=== PATIENT | male | born 1975 | race Caucasian/White ===

== ENCOUNTER 2018-08-30 09:15 | Inpatient (IN) | payer OTHER ==
[2018-08-30] MEDS ORDERED: PANTOPRAZOLE SODIUM 40 MG VIAL IVP ONE (09:46)
[2018-08-30] MEDS ORDERED: NS 1,000 ML IV ONE (09:46)
[2018-08-30] MEDS ORDERED: ONDANSETRON 4 MG/2 ML VIAL IVP ONE (09:46)
--- NOTE | 2018-08-30 09:48 | EDPHY ---
H & P Stated Complaint: AMS Time Seen by Provider: 08/30/18 09:31 HPI/ROS: CHIEF COMPLAINT: Failure to thrive, confusion HISTORY OF PRESENT ILLNESS: The patient is brought in by paramedics with failure to thrive. The patient is a chronic alcoholic who lives independently. He typically is in contact with his family who lives out of state on a daily basis. They had not heard from him and 4 days which prompted them to call police. The patient was found in his apartment with vomit, diarrhea and evidence of GI bleeding noted. The patient himself is confused and unable to provide much history. He denies any acute complaints. He does report using alcohol but is unable to quantify how much. The patient denies any vomiting or diarrhea. The patient takes no regular medications however by report is supposed to be on Seroquel. REVIEW OF SYSTEMS: A comprehensive 10 point review of systems is otherwise negative aside from elements mentioned in the history of present illness. Source: Patient, Family, EMS - Personal History Current Tetanus/Diphtheria Vaccine: Unsure Current Tetanus Diphtheria and Acellular Pertussis (TDAP): Unsure - Medical/Surgical History Hx Asthma: No Hx Chronic Respiratory Disease: No Hx Diabetes: No Hx Cardiac Disease: Yes Hx Renal Disease: No Hx Cirrhosis: No Hx Alcoholism: Yes Hx HIV/AIDS: No Hx Splenectomy or Spleen Trauma: No Other PMH: HTN, ETOH abuse, - Social History Smoking Status: Never smoked - Physical Exam Exam: General Appearance: Alert, confused Eyes: Pupils equal and round no pallor or injection ENT, Mouth: Mucous membranes moist Respiratory: There are no retractions, lungs are clear to auscultation Cardiovascular: Tachycardic Gastrointestinal: Epigastric tenderness to palpation, melanotic stool noted Neurological: Alert and oriented x1, no gross motor deficits present Skin: Warm and dry, no rashes Musculoskeletal: Neck is supple nontender Extremities: symmetrical, full range of motion Constitutional: Initial Vital Signs Temperature (C) 36.6 C 08/30/18 09:22 Heart Rate 110 H 08/30/18 09:22 Respiratory Rate 20 08/30/18 09:22 Blood Pressure 180/114 H 08/30/18 09:22 O2 Sat (%) 98 08/30/18 09:22 O2 Delivery Mode Room Air Allergies/Adverse Reactions: No Known Allergies Allergy (Unverified 01/16/19 09:27) Home Medications: Medication Instructions Recorded Atomoxetine HCl [Strattera] 60 mg PO DAILY 08/30/18 Lisinopril/Hctz 20/12.5MG 1 ea PO DAILY 08/30/18 [Zestoretic/Prinzide 20/12.5MG (*)] Omeprazole 20 mg PO DAILY 08/30/18 QUEtiapine FUMARATE [Seroquel 50 150 mg PO HS 08/30/18 mg (*)] Medical Decision Making - Diagnostics Imaging Results: Imaging Impressions Head CT 08/30/18 09:48 Impression: No acute intracranial findings. If symptoms persist and clinical suspicion warrants, consider MRI. Findings discussed with Jackson Lazar 08/30/2018 at 10:32. ED Course/Re-evaluation: The patient presents to the ED with altered mental status, anemia, vomiting and failure to thrive. The patient is a longstanding alcoholic. He does have evidence of encephalopathy currently and is unable to provide much history. The patient was hemodynamically stable. He was noted to have a significant anemia with a hematocrit of 22. The patient was typed and screened for 2 units of blood. The patient has been started on IV Protonix. The patient was also noted to be hypokalemic. Serum magnesium level currently pending. The patient has been started on ICU level potassium and magnesium replacement therapy. Consultation was made with the hospitalist service. The patient will be admitted by Dr. Hernandez to the SDU. Consultation was made with Gastroenterology at 11:00 a.m. 11:00 a.m.: Blood pressure 147/102 HR 100. 11:30 a.m.: The patient was seen by Dr. Arrington for Gastroenterology in the ED who will plan for endoscopy later today. Differential Diagnosis: Differential diagnosis considered includes upper GI bleed, lower GI bleed, hepatic encephalopathy, cirrhosis, coagulopathy, intracranial hemorrhage, alcohol intoxication Critical Care Time: Critical care time exclusive of procedures and exclusive of the PA's time was 45 minutes, performed by myself, Jackson Lazar MD. Patient presents the ED with acute blood loss anemia, altered mental status in the setting of known alcoholism and severe metabolic derangements. The patient will require admission to the intensive care unit. The patient will be seen in consultation by Internal Medicine, critical care and Gastroenterology. - Data Points Laboratory Results: Laboratory Results 08/30/18 09:28 01/16/19 09:28 08/30/18 08/30/18 08/30/18 09:28 09:28 09:28 WBC RBC Hgb Hct MCV MCH MCHC RDW Plt Count MPV Neut % (Auto) Lymph % (Auto) Elliott % (Auto) Eos % (Auto) Baso % (Auto) Nucleat RBC Rel Count Absolute Neuts (auto) Absolute Lymphs (auto) Absolute Monos (auto) Absolute Eos (auto) Absolute Basos (auto) Absolute Nucleated RBC Immature Gran % Immature Gran # PT INR APTT Sodium 139 mEq/L mEq/L (135-145) Potassium 2.7 mEq/L L* mEq/L (3.5-5.2) Chloride 103 mEq/L mEq/L (97-110) Carbon Dioxide 25 mEq/l mEq/l (22-31) Anion Gap 11 mEq/L mEq/L (6-14) BUN 26 mg/dL H mg/dL (7-23) Creatinine 0.5 mg/dL L mg/dL (0.7-1.3) Estimated GFR > 60 Glucose 122 mg/dL H mg/dL (70-100) Calcium 8.2 mg/dL L mg/dL (8.5-10.4) Magnesium 1.3 mg/dL L mg/dL (1.6-2.3) Total Bilirubin 4.5 mg/dL H mg/dL (0.1-1.4) Conjugated Bilirubin 1.4 mg/dL H mg/dL (0.0-0.5) Unconjugated Bilirubin 3.1 mg/dL H mg/dL (0.0-1.1) AST 183 IU/L H IU/L (17-59) ALT 65 IU/L IU/L (21-72) Alkaline Phosphatase 85 IU/L IU/L (38-126) Total Protein 7.6 g/dL g/dL (6.3-8.2) Albumin 3.2 g/dL L g/dL (3.5-5.0) Lipase 275 IU/L IU/L (23-300) Ethyl Alcohol < 10 mg/dL mg/dL (0-10) Patient ABO/Rh B POSITIVE Antibody Screen NEGATIVE 08/30/18 08/30/18 09:28 09:28 WBC 10.82 10^3/uL H 10^3/uL (3.80-9.50) RBC 2.47 10^6/uL L 10^6/uL (4.40-6.38) Hgb 7.9 g/dL L g/dL (13.7-17.5) Hct 22.9 % L % (40.0-51.0) MCV 92.7 fL fL (81.5-99.8) MCH 32.0 pg pg (27.9-34.1) MCHC 34.5 g/dL g/dL (32.4-36.7) RDW 16.8 % H % (11.5-15.2) Plt Count 60 10^3/uL L 10^3/uL (150-400) MPV 11.0 fL fL (8.7-11.7) Neut % (Auto) 74.9 % H % (39.3-74.2) Lymph % (Auto) 13.6 % L % (15.0-45.0) Elliott % (Auto) 9.0 % % (4.5-13.0) Eos % (Auto) 0.1 % L % (0.6-7.6) Baso % (Auto) 0.2 % L % (0.3-1.7) Nucleat RBC Rel Count 3.3 % H % (0.0-0.2) Absolute Neuts (auto) 8.11 10^3/uL H 10^3/uL (1.70-6.50) Absolute Lymphs (auto) 1.47 10^3/uL 10^3/uL (1.00-3.00) Absolute Monos (auto) 0.97 10^3/uL H 10^3/uL (0.30-0.80) Absolute Eos (auto) 0.01 10^3/uL L 10^3/uL (0.03-0.40) Absolute Basos (auto) 0.02 10^3/uL 10^3/uL (0.02-0.10) Absolute Nucleated RBC 0.36 10^3/uL H 10^3/uL (0-0.01) Immature Gran % 2.2 % H % (0.0-1.1) Immature Gran # 0.24 10^3/uL H 10^3/uL (0.00-0.10) PT 22.4 SEC H SEC (12.0-15.0) INR 1.96 H (0.83-1.16) APTT 29.6 SEC SEC (23.0-38.0) Sodium Potassium Chloride Carbon Dioxide Anion Gap BUN Creatinine Estimated GFR Glucose Calcium Magnesium Total Bilirubin Conjugated Bilirubin Unconjugated Bilirubin AST ALT Alkaline Phosphatase Total Protein Albumin Lipase Ethyl Alcohol Patient ABO/Rh Antibody Screen Medications Given: Potassium Chloride (Potassium Cl 10 Meq (Premix)) 100 mls @ 100 mls/hr IV EDNOW ONE Stop: 08/30/18 11:49 Last Admin: 08/30/18 11:06 Dose: 100 mls Magnesium Sulfate (Magnesium Sulf 2 Gm (Premix)) 50 mls @ 50 mls/hr IV EDNOW ONE Stop: 08/30/18 12:10 Last Admin: 08/30/18 11:17 Dose: 50 mls Discontinued Medications Sodium Chloride (Ns) 1,000 mls @ 0 mls/hr IV EDNOW ONE; Wide Open PRN Reason: Protocol Stop: 08/30/18 09:47 Last Admin: 08/30/18 10:20 Dose: 1,000 mls Ondansetron HCl (Zofran) 4 mg IVP EDNOW ONE Stop: 08/30/18 09:47 Last Admin: 08/30/18 10:20 Dose: 4 mg Pantoprazole Sodium (Protonix) 80 mg IVP EDNOW ONE Stop: 08/30/18 09:47 Last Admin: 08/30/18 10:20 Dose: 80 mg Departure - Departure Disposition: [facility] Acute Clinical Impression: Upper GI bleed, Encephalopathy acute, Anemia, Hypokalemia, Alcohol dependence Condition: Critical
[2018-08-30 09:56] LABS: PLATELET COUNT 60 10^3/uL (150-400)
[2018-08-30 10:32] LABS: INR 1.96 (0.83-1.16); PROTIME(PATIENT) 22.4 SEC (12.0-15.0)
[2018-08-30] MEDS ORDERED: PROTOCOL POTASSIUM 1 DOSE MISC PRN (10:46)
[2018-08-30] MEDS ORDERED: PROTOCOL MAGNESIUM 1 DOSE IV PRN (10:46)
[2018-08-30] MEDS ORDERED: POTASSIUM Cl (KCl) 100 ML IV ONE ×4 (10:50→10:54)
[2018-08-30] MEDS ORDERED: ACETAMINOPHEN 325 MG TAB PO PRN (11:09)
[2018-08-30] MEDS ORDERED: MAGNESIUM SULF 2 GM/WATER 50 ML IV ONE (11:11)
--- NOTE | 2018-08-30 11:36 | PDGENHP ---
History and Physical - Chief Complaint confusion - History of Present Illness 43yo M alcoholic who was brought in by EMS after found confused and covered in bloody emesis. Per ED reports, he is typically in contact with family on a routine basis; they had not heard from him in 4 days so called for a welfare check where he was found. He was found surrounded by countless beer cans and had feces and bloody vomit around him. The patient is confused and unable to provide a clear history. He denies drinking any alcohol. Denies any recent bleeding or vomiting. Denies taking any medications or any recent hospitalizations. Attempted to contact next of kin, sister Keshia, but no answer. In the ED, he was noted to have a hematocrit of 22, platelets of 60, INR 1.9, and abnormal LFTs. Ethyl alcohol level was undetectable. He was type and screened and given IV protonix. His hemodynamics are stable. Dr Shepard GI was consulted and planning on endoscopy later today. History Information - Allergies/Home Medication List Allergies/Adverse Reactions: No Known Allergies Allergy (Unverified 08/30/18 09:27) Home Medications: Atomoxetine HCl [Strattera] 60 mg PO DAILY 08/30/18 [Last Taken Unknown] Lisinopril/Hctz 20/12.5MG [Zestoretic/Prinzide 20/12.5MG (*)] 1 ea PO DAILY [Last Taken Unknown] Omeprazole 20 mg PO DAILY 08/30/18 [Last Taken Unknown] QUEtiapine FUMARATE [Seroquel 50 mg (*)] 150 mg PO HS 08/30/18 [Last Taken Unknown] I have personally reviewed and updated: family history, medical history, social history, surgical history - Past Medical History Additional medical history: alcohol abuse (per [facility] notes, was drinking a 5th/day, inpatient rehab 11/2017 and sober on PCP check 12/2017), ? mood disorder , situational hypertension - Surgical History Reports: no pertinent surgical hx - Family History Additional family history: unknown - Social History Smoking Status: Never smoked Alcohol Use: Heavy Drug Use: Marijuana Additional social history: Moved to [place] in 2017. Has sister and brother-in- law in [place]. Review of Systems Review of Systems: ROS: 10pt was reviewed & negative except for what was stated in HPI & below Physical Exam Physical Exam: Temp Pulse Resp BP Pulse Ox 36.6 C 98 20 147/102 H 96 08/30/18 09:22 08/30/18 11:08 08/30/18 11:08 08/30/18 11:08 08/30/18 11:08 Constitutional: no apparent distress, chronically ill appearing, obese Eyes: anicteric sclera Ears, Nose, Mouth, Throat: dry mucous membranes Cardiovascular: tachycardia, No edema Respiratory: no respiratory distress, no rales or rhonchi, clear to auscultation Gastrointestinal: soft, non-tender abdomen, distension, No hepatosplenomegally, No guarding Genitourinary: no bladder fullness, no bladder tenderness Skin: other (scattered ecchymoses and abrasions) Musculoskeletal: full muscle strength Neurologic: CN II-XII Intact, other (alert but only oriented to self) Psychiatric: encephalopathic Lab Data & Imaging Review 08/30/18 09:28 08/30/18 09:28 WBC 10.82 10^3/uL (3.80-9.50) H 08/30/18 09:28 RBC 2.47 10^6/uL (4.40-6.38) L 08/30/18 09:28 Hgb 7.9 g/dL (13.7-17.5) L 08/30/18 09:28 Hct 22.9 % (40.0-51.0) L 08/30/18 09:28 MCV 92.7 fL (81.5-99.8) 08/30/18 09:28 MCH 32.0 pg (27.9-34.1) 08/30/18 09:28 MCHC 34.5 g/dL (32.4-36.7) 08/30/18 09:28 RDW 16.8 % (11.5-15.2) H 08/30/18 09:28 Plt Count 60 10^3/uL (150-400) L 08/30/18 09:28 MPV 11.0 fL (8.7-11.7) 08/30/18 09:28 Neut % (Auto) 74.9 % (39.3-74.2) H 08/30/18 09:28 Lymph % (Auto) 13.6 % (15.0-45.0) L 08/30/18 09:28 [place] % (Auto) 9.0 % (4.5-13.0) 08/30/18 09:28 Eos % (Auto) 0.1 % (0.6-7.6) L 08/30/18 09:28 Baso % (Auto) 0.2 % (0.3-1.7) L 08/30/18 09:28 Nucleat RBC Rel Count 3.3 % (0.0-0.2) H 08/30/18 09:28 Absolute Neuts (auto) 8.11 10^3/uL (1.70-6.50) H 08/30/18 09:28 Absolute Lymphs (auto) 1.47 10^3/uL (1.00-3.00) 08/30/18 09:28 Absolute Monos (auto) 0.97 10^3/uL (0.30-0.80) H 08/30/18 09:28 Absolute Eos (auto) 0.01 10^3/uL (0.03-0.40) L 08/30/18 09:28 Absolute Basos (auto) 0.02 10^3/uL (0.02-0.10) 08/30/18 09:28 Absolute Nucleated RBC 0.36 10^3/uL (0-0.01) H 08/30/18 09:28 Immature Gran % 2.2 % (0.0-1.1) H 08/30/18 09:28 Immature Gran # 0.24 10^3/uL (0.00-0.10) H 08/30/18 09:28 PT 22.4 SEC (12.0-15.0) H 08/30/18 09:28 INR 1.96 (0.83-1.16) H 08/30/18 09:28 APTT 29.6 SEC (23.0-38.0) 08/30/18 09:28 Sodium 139 mEq/L (135-145) 08/30/18 09:28 Potassium 2.7 mEq/L (3.5-5.2) L* 08/30/18 09:28 Chloride 103 mEq/L (97-110) 08/30/18 09:28 Carbon Dioxide 25 mEq/l (22-31) 08/30/18 09:28 Anion Gap 11 mEq/L (6-14) 08/30/18 09:28 BUN 26 mg/dL (7-23) H 08/30/18 09:28 Creatinine 0.5 mg/dL (0.7-1.3) L 08/30/18 09:28 Estimated GFR > 60 08/30/18:28 Glucose 122 mg/dL (70-100) H 08/30/18 09:28 Calcium 8.2 mg/dL (8.5-10.4) L 08/30/18 09:28 Magnesium 1.3 mg/dL (1.6-2.3) L 08/30/18 09:28 Total Bilirubin 4.5 mg/dL (0.1-1.4) H 08/30/18:28 Conjugated Bilirubin 1.4 mg/dL (0.0-0.5) H 08/30/18: Unconjugated Bilirubin 3.1 mg/dL (0.0-1.1) H 08/30/18 09:28 AST 183 IU/L (17-59) H 08/30/18 09:28 ALT 65 IU/L (21-72) 08/30/18 09:28 Alkaline Phosphatase 85 IU/L (38-126) 08/30/18 09: Ammonia 118.0 uMOL/L (9.0-30.0) H 08/30/18 11:00 Total Protein 7.6 g/dL (6.3-8.2) 08/30/18 09:28 Albumin 3.2 g/dL (3.5-5.0) L 08/30/18:28 Lipase 275 IU/L (23-300) 08/30/18 09:28 Ethyl Alcohol < 10 mg/dL (0-10) 08/30/18 09:28 Patient ABO/Rh B POSITIVE 08/30/18:28 Antibody Screen NEGATIVE 08/30/18 09:28 Assessment & Plan Assessment: 43yo M alcoholic who was brought in by EMS after found confused and covered in bloody emesis found to have anemia, abnormal LFTs. Plan: 1. Blood loss anemia: Suspect acute and likely related to UGIB. Tachy but BP ok. - Serial H/H - Type and screened, transfuse to keep hgb>7 - Dr Arrington of GI consulted, planning on EGD this afternoon - Pantoprazole 40mg IV BID 2. Acute hepatitis: Likely related to etoh abuse. Tylenol level negative. - Check acute hepatitis panel and liver ultrasound with doppler - DF score >50 however will hold on steroids with GIB - Trend LFTs daily 3. Acute metabolic encephalopathy: Related to liver failure, possible early etoh withdrawal. - Minimize centrally acting meds 4. 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 - FFP/vit K per GI. Monitor INR daily 5. Thrombocytopenia: Marrow suppression from etoh. Bleeding as above. - Monitor closely 6. Hypokalemia - Placed on K and Mg aggressive repletion protocol 7. EtOH abuse: Concern for early withdrawal with AMS, elevated BP. - Place on CIWA protocol, administer thiamine, substance abuse counseling when appropriate 8. ? mood disorder: Not on medications - Will try to contact family for additional info VTE ppx: SCDs Code: full Diet: NPO Dispo: Admit to step down unit as inpatient as will likely require >2 midnights given complexity and severity of medical problems.
--- NOTE | 2018-08-30 12:26 | GCON ---
REFERRING PHYSICIAN: Willam Hernandez MD CHIEF COMPLAINT: Gastrointestinal bleed. HISTORY OF PRESENT ILLNESS: This 43-year-old male was brought into the emergency department after be ing found down. I have been asked to see this patient in consultation by Dr. Hernandez. Patient has a history of known chronic alcohol abuse and lives independently. He is . His family lives in [place]. His family was concerned and requested a welfare check. Police went to the apartment a nd found him down in vomit and diarrhea. There was evidence of GI bleeding with blood around the pat ient. Patient was confused and unable to provide much history. He denied any abdominal pain or disc omfort. Reportedly, no prior history of GI bleeding. Patient does take Prilosec and Seroquel as an outpatient. Patient was found to have a low hematocrit of 22. Hemodynamically stable. Does have a low potassium 2.7. Asked to see patient for further evaluation. PAST MEDICAL HISTORY: Remarkable for significant alcohol use. PAST SURGICAL HISTORY: Negative. SOCIAL HISTORY: He is a nonsmoker. Alcohol as above. Patient lives alone without much family suppo rt. FAMILY HISTORY: Noncontributory as it as pertains to HPI. MEDICATIONS: Prior to admission, include Seroquel and omeprazole. ALLERGIES: He has no known drug allergies. REVIEW OF SYSTEMS: Unobtainable. PHYSICAL EXAMINATION: VITAL SIGNS: Pulse 110, respiratory rate 20, 118/114, 98% sat, 36.6. GENERA L: The patient is awake and alert, but confused and not oriented to time or place. HEENT: Normocep halic, atraumatic. EOMI. NECK: Supple. No cervical adenopathy. No thyromegaly. LUNGS: Clear. CARDIAC: Normal S1, S2 without murmur. ABDOMEN: Soft, benign, nontender. No hepatosplenomegaly. EXTREMITIES: Without clubbing, cyanosis, or edema. SKIN: Remarkable for some excoriations and kitty sions on his right knee. NEURO: Grossly nonfocal. PSYCH: Patient is confused, not oriented to marshall ce or time. LABORATORY/IMAGING: Noncontrast CT scan of the head was negative. CBC with hemoglobin 7.9, hematocrit 22.9, platelets of 60,000. Coags: PT of 22.4, INR of 1.96. Ser um chemistry: Potassium 2.7, chloride of 103, BUN 26, creatinine 0.5, glucose of 122. Total bilirub in of 4.5, conjugated bilirubin of 1.4 with unconjugated bilirubin 3.1, AST of 183, albumin 3.2 with ALT of 65, alkaline phosphatase of 85. Lipase 275. Alcohol level is less than 10. IMPRESSION: 43-year-old male with: 1. History of chronic alcoholism with evidence of probable upper gastrointestinal bleed. 2. Anemia. 3. Thrombocytopenia. 4. Abnormal liver function tests with elevated indirect bilirubin. RECOMMENDATIONS: 1. Replete potassium. 2. IV hydration. 3. Serial H and H. 4. Patient will be admitted to a monitored bed. 5. IV Protonix. 6. Recommend right upper quadrant ultrasound. 7. Recommend urgent endoscopy when metabolically stable. 8. We will follow with you. Thank you for allowing us to participate in the care of this patient. /[id number]/MODL
[2018-08-30] MEDS ORDERED: LORazepam 2 MG/ML INJ IVP ONE (12:33)
[2018-08-30 14:39] LABS: HEPATITIS A ANTIBODY IGM (BCH) NEGATIVE (NEGATIVE); HEPATITIS B CORE AB IGM NEGATIVE (NEGATIVE); HEPATITIS B SURFACE ANTIGEN NEGATIVE (NEGATIVE); HEPATITIS C ANTIBODY TOTAL NEGATIVE (NEGATIVE)
[2018-08-30] MEDS: POTASSIUM Cl (KCl) 100 ML IV SCH ×4 (15:56→20:28)
[2018-08-30] MEDS ORDERED: NS W/ 20 KCl/L 1,000 ML IV SCH (19:00)
[2018-08-30] MEDS: PANTOPRAZOLE SODIUM 40 MG VIAL IVP SCH (22:40)
[2018-08-31] MEDS: POTASSIUM Cl (KCl) 100 ML IV SCH ×9 (03:33→23:57)
[2018-08-31] MEDS ORDERED: FLUMAZENIL 0.5 MG/5 ML MDV IVP PRN (04:21)
[2018-08-31] MEDS: LORazepam 2 MG/ML INJ IVP PRN ×2 (04:32→12:44)
[2018-08-31] MEDS: THIAMINE HCL 100 MG TAB PO SCH (04:35)
[2018-08-31 06:19] LABS: PLATELET COUNT 50 10^3/uL (150-400)
[2018-08-31 06:27] LABS: INR 1.76 (0.83-1.16); PROTIME(PATIENT) 20.6 SEC (12.0-15.0)
--- NOTE | 2018-08-31 08:56 | HOSPPROG ---
Hospitalist Progress Note Assessment/Plan: 43yo M alcoholic who was brought in by EMS after found confused and covered in bloody emesis found to have anemia, abnormal LFTs. 1. Acute blood loss anemia: Due to variceal bleed. - s/p variceal banding this AM - Serial H/H - Type and screened, transfuse to keep hgb>7 - Pantoprazole 40mg IV BID 2. Acute alcoholic hepatitis: Tylenol level and acute hep panel negative. - DF score >50 however will hold on steroids with GIB - Trend LFTs daily 3. 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 MELD 19, estimating 6% 3 month mortality. 4. Acute metabolic encephalopathy: Related to liver failure - Start lactulose 5. Portal vein thrombosis: No evidence to anticoagulate, especially in setting of GIB. 6. 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 Monitor. 7. Thrombocytopenia: Marrow suppression from etoh. Bleeding as above. Monitor. 8. Hypokalemia - Placed on K and Mg aggressive repletion protocol 9. EtOH abuse: Likely will withdraw - CIWA protocol, administer thiamine, substance abuse counseling when appropriate VTE ppx: SCDs Code: full Diet: clears Dispo: Continue inpatient in step down unit. If stable, consider transfer to floor tomorrow. Discussed at length with [id number] Saad this morning. Sister, Keshia, proxy decision maker. Subjective: Sleepy. Answering questions with one word answers. Denies abdominal pain, emesis, blood in stools. Objective: Vital Signs Temp Pulse Resp BP Pulse Ox 36.9 C 83 17 156/79 H 96 08/31/18 07:39 08/31/18 07:39 08/31/18 07:39 08/31/18 07:39 08/31/18 07:39 Laboratory Results 08/31/18 05:57 08/31/18 08:05 08/30/18 08/31/18 09/01/18 05:59 05:59 05:59 Intake Total 3220 Output Total 900 Balance 2320 PT 20.6 SEC (12.0-15.0) H 08/31/18 05:57 INR 1.76 (0.83-1.16) H 08/31/18 05:57 - Physical Exam Constitutional: no apparent distress, obese Eyes: PERRL Ears, Nose, Mouth, Throat: no oral mucosal ulcers, other (dried blood around mouth) Cardiovascular: regular rate and rhythym, no murmur, rub, or gallop, No edema Respiratory: no respiratory distress, no rales or rhonchi, clear to auscultation Gastrointestinal: soft, non-tender abdomen, distension, No tenderness, No guarding Genitourinary: no bladder fullness, no bladder tenderness, no renal bruits Skin: other (scattered ecchymoses and abrasions) Musculoskeletal: generalized weakness Neurologic: other (alert, oriented to self only, no asterixis, no tongue fasciculations or hand tremor) Psychiatric: encephalopathic ICD10 Worksheet Patient Problems: Problems Problem Status Onset Alcohol dependence Acute Anemia Acute Encephalopathy acute Acute Hypokalemia Acute Upper GI bleed Acute
[2018-08-31] MEDS ORDERED: LR 1,000 ML IV ONE (09:30)
[2018-08-31] MEDS ORDERED: PROPOFOL 200 MG/20 ML VIAL ONE ×2 (09:54→10:06)
--- NOTE | 2018-08-31 09:54 | PDANEPAE ---
ANE Past Medical History - Pulmonary History Hx Oxygen in Use at Home: No Hx Sleep Apnea: No Sleep Apnea Screening Result - Last Documented: Positive - Endocrine History Hx Diabetes: No ANE Review of Systems Review of Systems: ANE Patient History - Allergies Allergies/Adverse Reactions: No Known Allergies Allergy (Unverified 08/30/18 09:27) - Home Medications Home Medications: Atomoxetine HCl [Strattera] 60 mg PO DAILY 08/30/18 [Last Taken Unknown] Lisinopril/Hctz 20/12.5MG [Zestoretic/Prinzide 20/12.5MG (*)] 1 ea PO DAILY [Last Taken Unknown] Omeprazole 20 mg PO DAILY 08/30/18 [Last Taken Unknown] QUEtiapine FUMARATE [Seroquel 50 mg (*)] 150 mg PO HS 08/30/18 [Last Taken Unknown] - NPO status NPO Since - Liquids (Date): 08/30/18 NPO Since - Liquids (Time): 09:00 NPO Since - Solids (Date): 08/30/18 NPO Since - Solids (Time): 09:00 - Smoking Hx Smoking Status: Never smoked - Alcohol Use Alcohol Use: Heavy ANE Labs/Vital Signs - Labs Result Diagrams: 08/31/18 05:57 08/31/18 08:05 - Vital Signs Blood Pressure: 156/79 Heart Rate: 83 Respiratory Rate: 17 O2 Sat (%): 96 Height: 182.88 cm Weight: 102 kg ANE Physical Exam - Airway Mallampati Score: Unable to assesss Mouth exam: small mouth opening, ceballos - Pulmonary Pulmonary: no respiratory distress, no rales or rhonchi, clear to auscultation - Cardiovascular Cardiovascular: regular rate and rhythym, no murmur, rub, or gallop - ASA Status ASA Status: IV ANE Anesthesia Plan Anesthesia Plan: GA with mask (patient encephalopatic, not following commands)
[2018-08-31] MEDS ORDERED: ALBUTEROL 3 ML DEYVIAL IH PRN (10:11)
[2018-08-31] MEDS ORDERED: NALOXONE HCL 0.4 MG/ML INJ IVP PRN (10:11)
--- NOTE | 2018-08-31 10:23 | POSTANESTH ---
Post Anesthetic Evaluation Cardiovascular Status: Normal, Stable, Similar to Pre-Op Cond Respiratory Status: Normal, Stable, Similar to Pre-op Cond. Level of Consciousness/Mental Status: Moderately Sleepy Pain Control: Adequate, Prn Tx Ordered Nausea/Vomiting Control: Adequate, Prn Tx Ordered Complications Possibly Related to Anesthesia: None Noted
--- NOTE | 2018-08-31 10:38 | GIREPORT ---
Formerly [facility], [facility] Surgical Services - Endoscopy Department Patient Name: Lucas Moura Procedure Date: 08/31/2018 9:46 AM Patient Type: Inpatient Attending MD/ ER Physician: Blayne Arrington MD Procedure: Upper GI endoscopy Indications: Acute post hemorrhagic anemia, Melena, Suspected upper gastrointestinal bleeding, Chronic alcoholism with suspected liver disease. Providers: Blayne Arringtno MD Medicines: Propofol per Anesthesia Complications: No immediate complications. Description of Procedure: After obtaining informed consent, the endoscope was passed under direct vision. Throughout the procedure, the patient's blood pressure, pulse, and oxygen saturations were monitored continuously. The Endoscope was intro duced through the mouth, and advanced to the second part of duodenum. The [facility] er GI endoscopy was accomplished without difficulty. The patient tolerated e procedure well. Moderate Sedation: Propofol per anesthesia. Findings: Two columns of non-bleeding grade II varices were found in the lower th ird of the esophagus, 40 cm from the incisors. Stigmata of recent bleeding were evident and red ella signs were present. Two bands were successfully pl aced with complete eradication, resulting in deflation of varices. There was no bleeding during the procedure. Moderate portal hypertensive gastropathy was found in the entire examin ed stomach. Biopsies were taken with a cold forceps for histology. The examined duodenum was normal. Estimated Blood Loss: Estimated blood loss: none. Post Op Diagnosis: - Recently bleeding grade II esophageal varices. Completely eradicated. Banded. - Portal hypertensive gastropathy. Biopsied. - Normal examined duodenum. Recommendation: - Clear liquid diet. - Await pathology results. - Serial H and H, monitor for signs and symtpms of bleeding - Repeat upper endoscopy in 4 weeks for retreatment. - Perform a RUQ ultrasound with doplers. - Thank you for allowing me to participate in the care of your patient. Attending Participation: I personally performed the entire procedure. Blayne Arrington MD Blayne Arrington MD 08/31/2018 10:37:40 AM This report has been signed electronicallyStfrances Arrington MD Number of Addenda: 0 Note Initiated On: 08/31/2018 9:46 AM [email or web address]
--- NOTE | 2018-08-31 10:54 | PDMN ---
Medical Necessity Medical necessity: Pt meets inpt criteria per MD order and MCG M-180, Gastrointestinal Bleeding, Upper. 43 y/o w/hx alcoholism presented to ER confused, w/bloody emesis, admitted w/ABLA likely r/t UGIB, H&H 7.9, 22.9 on admit and then down to 6.5, 18.9, acute hepatitis, cirrhosis on US, tachy, hypokalemia w/K 2.7, hypomagnesemia w/Mg 1.3, acute metabolic encephalopathy, ETOH abuse- on CIWA protocol, coagulopathy due to liver dysfunction, FFP/vit K/ urgent endoscopy when metabolically stable per GI. Est LOS>2MN for ongoing eval/ management of above.
[2018-08-31] MEDS: PANTOPRAZOLE SODIUM 40 MG VIAL IVP SCH ×2 (11:57→20:02)
--- NOTE | 2018-08-31 14:21 | GCON ---
CRITICAL CARE CONSULT DATE OF CONSULTATION: 08/31/2018 HISTORY OF PRESENT ILLNESS: This patient is a 43-year-old male with longstanding history of alcoholi sm who has failed rehab multiple times in the past who was found at home confused and surrounded by b eer cans, feces, and bloody emesis. The patient's family had difficulty reaching him for several day s who live out of state, called for a welfare check, and he was found in that state. He was brought to the emergency department, found to have hematocrit 22, platelets of 60. INR of 1.9, and abnormal LFTs. His blood alcohol level was undetectable. He was thought to be having a GI bleed and was move d to the intensive care unit for further monitoring. An EGD revealed esophageal varices, which were banded. He has also been getting Protonix. He has shown evidence of some alcohol withdrawal. He ovalles s gotten some Ativan and was unable to give much of a history to me at the time, so most of mine come s from his chart. REVIEW OF SYSTEMS: Otherwise negative. PAST MEDICAL HISTORY: Includes: 1. Alcohol abuse. 2. Possible mood disorder. 3. Hypertension. PAST SURGICAL HISTORY: None. FAMILY HISTORY: Unknown. SOCIAL HISTORY: He is a nonsmoker. Also uses marijuana, in addition to alcohol. CURRENT MEDICATIONS: Include lactulose, Ativan per protocol, Protonix, and thiamine. PHYSICAL EXAM: VITAL SIGNS: His T-max was normal. Blood pressure 141/82, heart rate 103, respirati ons 23, oxygen saturation 98% on 2 L. GENERAL: He was somnolent and not verbal. HEENT: Pupils equ ally round and reactive to light. Nonicteric and noninjected. Mucous membranes moist without erythe ma or exudate. RESPIRATORY: Breath sounds were clear to auscultation bilaterally without wheeze or rales. HEART: Regular rate and rhythm without murmurs, rubs, gallops. ABDOMEN: Soft, nontender, n ondistended without hepatosplenomegaly that I could detect. EXTREMITIES: No clubbing, cyanosis, or edema. NEUROLOGIC: Exam was nonfocal, save for the somnolence. There was no obvious asterixis, alt brando this is difficult to test in an obtunded patient. SKIN: Warm and dry without rash. OBJECTIVE DATA: Includes white count of 6.9, hematocrit 24, platelets of 50. INR 1.7. Basic metabo lic panel showed hypokalemia at 2.9, but was, otherwise, fairly unremarkable. His total bilirubin wa s 5.1 and risen from 4.5 on admission. AST was 133 down from 183 and ALT was normal at 54, with an a lkaline phosphatase of 73. His serum albumin was 2.5 and a hepatitis screen was negative for A, B, a nd C. The blood alcohol was negative. ASSESSMENT/PLAN: 1. Upper gastrointestinal bleed related to esophageal varices and cirrhosis as noted on imaging stud ies. This seems to be relatively stable at this time. The definitive therapy has been done and will be able to advance his diet eventually. His thrombocytopenia is no doubt a contributor, though is l ikely a baseline for him. We will have to investigate if there is any evidence of a previous platele t counts to be certain, but my suspicion is bone marrow suppression and probably a baseline. 2. Transaminitis is probably alcoholic hepatitis, though is on its way out. His INR is improving an d the LFTs are coming down, and steroids were not given, though I did not calculate his discriminant function. 3. Encephalopathy. He was quite encephalopathic yesterday. He is more somnolent today and I think this is after he was given Ativan per CIWA protocol. 4. Alcohol withdrawal. He is on protocol, but not a Precedex drip at the moment. Will have to watc h closely as this may escalate moving forward. /[id number]/MODL
[2018-08-31] MEDS: LACTULOSE 20 GM/30 ML UDCUP PO SCH ×2 (15:37→20:02)
[2018-08-31] MEDS ORDERED: POTASSIUM CL 20 MEQ TAB PO ONE (22:17)
--- NOTE | 2018-08-31 23:45 | CPEKG ---
Test Reason : OPEN Blood Pressure : / mmHG Vent. Rate : 085 BPM Atrial Rate : 085 BPM P-R Int : 157 ms QRS Dur : 114 ms QT Int : 411 ms P-R-T Axes : 028 -05 047 degrees QTc Int : 489 ms Sinus rhythm Borderline prolonged QT interval Confirmed by Shola Guillen ([id number]) on 08/31/2018 11:45:22 PM Referred By: Confirmed By:Shola Guillen
[2018-09-01 03:56] LABS: INR 1.81 (0.83-1.16); PROTIME(PATIENT) 21.1 SEC (12.0-15.0)
[2018-09-01 04:21] LABS: PLATELET COUNT 46 10^3/uL (150-400)
[2018-09-01] MEDS ORDERED: POTASSIUM CL 20 MEQ TAB PO ONE ×2 (05:30→21:05)
[2018-09-01] MEDS ORDERED: MAGNESIUM SULF 1 GM/DEXTROSE 100 ML IV ONE (08:41)
[2018-09-01] MEDS ORDERED: methylPREDNISolone SOD SUCC 40 MG/ML VIAL IVP SCH (09:00)
[2018-09-01] MEDS: LACTULOSE 20 GM/30 ML UDCUP PO SCH ×3 (09:38→20:03)
[2018-09-01] MEDS: THIAMINE HCL 100 MG TAB PO SCH (09:39)
[2018-09-01] MEDS: PANTOPRAZOLE SODIUM 40 MG VIAL IVP SCH (09:50)
[2018-09-01] MEDS ORDERED: PROTOCOL POTASSIUM 1 DOSE MISC PRN ×2 (11:55→21:03)
--- NOTE | 2018-09-01 13:46 | SOAPPROG ---
[facility] Progress Note Assessment/Plan: Assessment: 43 year old male presented to the hospital after found down at home with GI bleed. Patient significant drinker with evidence of cirrhosis on imaging/U/S. EGD with esophageal varices banded. Mental status improved and Alert and orientated x3. No signs of bleeding. Plan: 1. Advance diet to 2 gram low sodium diet. 2. Initiate on Nadolol 20 mg daily, may titrate up to 40 mg daily, goal of dosing to have resting HR 55 - 60. (for management of portal HTN) 3. EGD with repeat banding in 4 weeks 4. PO pantoprazole 40 mg daily 5. Will sign off, please call with further questions 09/01/18 13:48 Subjective: CC: GI bleed Patient is awake and alert, orientated x 3. No signs of bleeding. Objective: Vital Signs Temp Pulse Resp BP Pulse Ox 37.6 C 94 16 129/85 H 98 09/01/18 07:34 09/01/18 11:20 09/01/18 11:20 09/01/18 11:20 09/01/18 11:20 Laboratory Results 09/01/18 03:40 09/01/18 03:40 08/31/18 09/01/18 09/02/18 05:59 05:59 05:59 Intake Total 3220 5790 Output Total 900 1300 450 Balance 2320 4490 -450 PT 21.1 SEC (12.0-15.0) H 09/01/18 03:40 INR 1.81 (0.83-1.16) H 09/01/18 03:40 Generic Name Dose Route Start Last Admin Trade Name Kalq PRN Reason Stop Dose Admin Lactated Ringer's 1,000 mls @ 25 mls/hr 08/31/18 09:30 08/31/18 11:58 Lr IV 09/02/18 01:29 250 mls ONCALL ONE Administration Lactulose 20 gm 09/01/18 16:00 Cephulac PO 02/28/19 15:59 TID FRANSISCO Magnesium Sulfate 1 dose 08/30/18 10:46 Protocol Magnesium IV 02/26/19 10:45 AD PRN Pt on Electrolyte Protocol Protocol Methylprednisolone Sodium Succinate 32 mg 09/01/18 09:00 09/01/18 09:47 Solu-Medrol IVP 02/28/19 08:59 32 mg DAILY FRANSISCO Administration Pantoprazole Sodium 40 mg 09/01/18 21:00 Protonix PO 02/28/19 20:59 BID FRANSISCO Potassium Chloride 1 dose 09/01/18 11:55 Protocol Potassium MISC 02/28/19 11:54 AD PRN Pt on Electrolyte Protocol Protocol Thiamine HCl 100 mg 08/31/18 04:30 09/01/18 09:39 Vitamin B-1 PO 02/27/19 04:29 100 mg DAILY FRANSISCO Administration Discontinued Medications Generic Name Dose Route Start Last Admin Trade Name Freq PRN Reason Stop Dose Admin Acetaminophen 650 mg 08/30/18 11:09 Tylenol PO 02/26/19 11:08 Q4HRS PRN Pain, Mild/Fever, Can Take PO Albuterol 3 ml 08/31/18 10:11 Proventil Neb IH 08/31/18 11:12 Q10M PRN PACU, Wheezing Flumazenil 0.2 - 0.5 mg 08/31/18 04:21 Romazicon IVP 02/27/19 04:20 PRN PRN Resp Rate Below 10 Sodium Chloride 1,000 mls @ 0 mls/hr 08/30/18 09:46 08/30/18 10:20 Ns IV 08/30/18 09:47 1,000 mls EDNOW ONE Administration Protocol Wide Open Potassium Chloride 100 mls @ 100 mls/hr 08/30/18 10:50 08/30/18 11:06 Potassium Cl 10 Meq (Premix) IV 08/30/18 11:49 100 mls EDNOW ONE Administration Potassium Chloride 100 mls @ 100 mls/hr 08/30/18 10:53 08/30/18 12:19 Potassium Cl 10 Meq (Premix) IV 08/30/18 11:52 100 mls EDNOW ONE Administration Potassium Chloride 100 mls @ 100 mls/hr 08/30/18 10:53 08/30/18 13:19 Potassium Cl 10 Meq (Premix) IV 08/30/18 11:52 100 mls EDNOW ONE Administration Potassium Chloride 100 mls @ 100 mls/hr 08/30/18 10:54 08/30/18 16:02 Potassium Cl 10 Meq (Premix) IV 08/30/18 11:53 Not Given EDNOW ONE Magnesium Sulfate 50 mls @ 50 mls/hr 08/30/18 11:11 08/30/18 11:17 Magnesium Sulf 2 Gm (Premix) IV 08/30/18 12:10 50 mls EDNOW ONE Administration Potassium Chloride 100 mls @ 100 mls/hr 08/30/18 15:30 08/30/18 20:28 Potassium Cl 10 Meq (Premix) IV 08/30/18 19:29 100 mls Q1H FRANSISCO Administration Potassium Chloride/Sodium Chloride 1,000 mls @ 125 mls/hr 08/30/18 19:00 19:11 Ns W/ 20 Kcl/L IV 02/26/19 18:59 1,000 mls CONT FRANSISCO Administration Potassium Chloride 100 mls @ 100 mls/hr 08/31/18 03:30 08/31/18 06:47 Potassium Cl 10 Meq (Premix) IV 08/31/18 07:29 100 mls Q1H FRANSISCO Administration Potassium Chloride 100 mls @ 100 mls/hr 08/31/18 12:00 08/31/18 14:34 Potassium Cl 10 Meq (Premix) IV 08/31/18 14:59 100 mls Q1H FRANSISCO Administration Potassium Chloride 100 mls @ 100 mls/hr 08/31/18 22:30 08/31/18 23:57 Potassium Cl 10 Meq (Premix) IV 09/01/18 00:29 100 mls Q1H FRANSISCO Administration Magnesium Sulfate/Dextrose 100 mls @ 100 mls/hr 09/01/18 08:41 09/01/18 09:39 Magnesium Sulf 1 Gm (Premix) IV 09/01/18 09:40 100 mls ONCE ONE Administration Lactulose 20 gm 08/31/18 13:45 09/01/18 09:38 Cephulac PO 02/27/19 13:44 20 gm BID FRANSISCO Administration Lorazepam 1 mg 08/30/18 12:33 08/30/18 12:37 Ativan Injection IVP 08/30/18 12:34 1 mg EDNOW ONE Administration Lorazepam 0 mg 08/31/18 04:21 08/31/18 12:44 Ativan Injection IVP 02/27/19 04:20 2 mg Q1H PRN Administration Alcohol Withdrawal w/IV access Protocol Naloxone HCl 0.1 mg 08/31/18 10:11 Narcan IVP 08/31/18 11:11 Q2M PRN PACU Resp Rate <10/min Ondansetron HCl 4 mg 08/30/18 09:46 08/30/18 10:20 Zofran IVP 08/30/18 09:47 4 mg EDNOW ONE Administration Pantoprazole Sodium 80 mg 08/30/18 09:46 08/30/18 10:20 Protonix IVP 08/30/18 09:47 80 mg EDNOW ONE Administration Pantoprazole Sodium 40 mg 08/30/18 21:00 09/01/18 09:50 Protonix IVP 02/26/19 20:59 40 mg BID FRANSISCO Administration Potassium Chloride 1 dose 08/30/18 10:46 Protocol Potassium MISC 02/26/19 10:45 AD PRN Pt on Electrolyte Protocol Protocol Potassium Chloride 40 meq 08/31/18 22:17 08/31/18 22:27 Klor-Con PO 08/31/18 22:18 40 meq ONCE ONE Administration Potassium Chloride 40 meq 09/01/18 05:30 09/01/18 06:29 Klor-Con PO 09/01/18 05:31 40 meq ONCE ONE Administration Propofol Confirm 08/31/18 09:54 Diprivan Administered 08/31/18 09:55 Dose 200 mg .ROUTE .STK-MED ONE Propofol Confirm 08/31/18 10:06 Diprivan Administered 08/31/18 10:07 Dose 200 mg .ROUTE .STK-MED ONE Physical Exam - Physical Exam General Appearance: alert, no apparent distress Respiratory: lungs clear, normal breath sounds Cardiac/Chest: regular rate, rhythm Abdomen: normal bowel sounds, non-tender, soft Skin: normal color, warm/dry Neuro/Psych: alert, normal mood/affect, oriented x 3 ICD10 Worksheet Patient Problems: Problems Problem Status Onset Alcohol dependence Acute Anemia Acute Encephalopathy acute Acute Hypokalemia Acute Upper GI bleed Acute
--- NOTE | 2018-09-01 14:24 | HOSPPROG ---
Hospitalist Progress Note Assessment/Plan: 43yo M alcoholic who was brought in by EMS after found confused and covered in bloody emesis found to have anemia, abnormal LFTs. 1. Acute blood loss anemia: Due to variceal bleed s/p banding x2 08/31. H/H stable. - Daily hemoglobin, continue PPI PO BID, needs repeat EGD in 4 weeks 2. Acute alcoholic hepatitis: Tylenol level and acute hep panel negative. - DF score >50 on admit, 32 today - Initiated prednisolone 40mg qd, calculate Lille score on day 3 - Trend LFTs daily 3. 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 MELD 19, estimating 6% 3 month mortality. - Add nadolol 20mg qd per GI 4. Acute metabolic encephalopathy: Improving. Related to liver failure - Increase lactulose 5. Portal vein thrombosis: No evidence to anticoagulate, especially in setting of GIB. 6. 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 Monitor. 7. Thrombocytopenia: Marrow suppression from etoh. Bleeding as above. Monitor. 8. Hypokalemia - Placed on K and Mg aggressive repletion protocol 9. EtOH abuse: Do not think he is withdrawing. Only 4mg ativan last 24 hours - Discontinue CIWA VTE ppx: SCDs Code: full Diet: low sodium Dispo: Continue inpatient in step down unit. If stable, consider transfer to floor tomorrow. Subjective: Sitting up, alert this AM. More oriented. Not wanting to discuss drinking. I discussed his diagnoses of cirrhosis. Objective: Vital Signs Temp Pulse Resp BP Pulse Ox 37.6 C 94 16 129/85 H 98 09/01/18 07:34 09/01/18 11:20 09/01/18 11:20 09/01/18 11:20 09/01/18 11:20 Laboratory Results 09/01/18 03:40 09/01/18 03:40 08/31/18 09/01/18 09/02/18 05:59 05:59 05:59 Intake Total 3220 5790 Output Total 900 1300 450 Balance 2320 4490 -450 PT 21.1 SEC (12.0-15.0) H 09/01/18 03:40 INR 1.81 (0.83-1.16) H 09/01/18 03:40 - Physical Exam Constitutional: no apparent distress, appears nourished, not in pain Eyes: PERRL, anicteric sclera, EOMI Ears, Nose, Mouth, Throat: dry mucous membranes Cardiovascular: regular rate and rhythym, no murmur, rub, or gallop, No edema Respiratory: no respiratory distress, no rales or rhonchi, clear to auscultation Gastrointestinal: normoactive bowel sounds, soft, non-tender abdomen, no palpable masses Genitourinary: no bladder fullness, no bladder tenderness, no renal bruits Skin: other (scattered bruising and abrasions) Musculoskeletal: full muscle strength, no muscle tenderness, normal joint ROM Neurologic: other (alert, oriented x2, mild asterixis) Psychiatric: encephalopathic ICD10 Worksheet Patient Problems: Problems Problem Status Onset Alcohol dependence Acute Anemia Acute Encephalopathy acute Acute Hypokalemia Acute Upper GI bleed Acute
--- NOTE | 2018-09-01 15:25 | PDINTPN ---
Cut Off Machine Helper Progress Note Assessment/Plan: 43 M with long history of etoh admitted 08/30/18 after welfare check called for by out of state sister. He was found confused, covered in feces and bloody emesis with beer cans strewn about his home. His BP was stable, his LFTs were consistent with etoh hepatitis and his ammonia level was 111. He underwent EGD showing grade II varices that were banded without difficulty or evidence of rebleed. While a CIWA protocol was started, this was dc'd given his apparent hepatic encephalopathy. * UGIB- 2/2 varices. His US showed liver cirrhosis and splenomegaly as well as portal vein thrombosis. Hct is stable and there is no rebleeding * ETOH hepatitis- his discriminant function on admission was 39 and remains 32 today so prednisolone was started. His MELD score on admission was 20, and is now 18; both suggesting a possible 50% 30-day mortality. Hep A, B, and C have been ruled out here and elsewhere. I suspect his elevated INR and low albumin also reflect poor hepatic synthetic function. * Hepatic encephalopathy- he responded well to lactulose and is oriented x2 only. Continue lactulose but probably OK to hold off on rifaximin. No value in serial ammonia levels * ETOH dependence- he has failed rehab several times. Forced rehab is not indicated, but CM will work with him on plans for abstinence if he is interested. 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 * PVT- anticoagulation is not always indicated and I would argue against it at this time given UGIB. I do not think this is the cause of his LFT abnormalities given the predominant hepatocellular, rather than obstructive, pattern. Subjective: stable overnight with very little ativan. Declined detailed discussion of alcohol related issues. Objective: Vital Signs Temp Pulse Resp BP Pulse Ox 37.6 C 94 16 129/85 H 98 09/01/18 07:34 09/01/18 11:20 09/01/18 11:20 09/01/18 11:20 09/01/18 11:20 Laboratory Results 09/01/18 03:40 09/01/18 03:40 08/31/18 09/01/18 09/02/18 05:59 05:59 05:59 Intake Total 3220 5790 Output Total 900 1300 450 Balance 2320 4490 -450 PT 21.1 SEC (12.0-15.0) H 09/01/18 03:40 INR 1.81 (0.83-1.16) H 09/01/18 03:40 Physical Exam - Physical Exam General Appearance: WD/WN, alert, no apparent distress EENT: PERRL/EOMI Neck: supple Respiratory: lungs clear, normal breath sounds, No respiratory distress, No accessory muscle use Cardiac/Chest: regular rate, rhythm, No edema Abdomen: non-tender, soft, ascites (maybe?), No distended, No guarding, No rebound Skin: normal color, warm/dry, No cyanosis Neuro/Psych: alert, normal mood/affect, cognition abnormalities, No oriented x 3 , No abnormal diving supervisor II-XII ICD10 Worksheet Patient Problems: Problems Problem Status Onset Alcohol dependence Acute Anemia Acute Encephalopathy acute Acute Hypokalemia Acute Upper GI bleed Acute
[2018-09-01] MEDS: NADOLOL 20 MG TAB PO SCH (15:49)
--- NOTE | 2018-09-01 16:52 | ASMTCASEMG ---
Living Arrangements What is your living Answers: Alone arrangement? Who do you live with? Type Of Residence What kind of residence do Answers: House you live in? Type of Residence Facility Name Notes: Patient's left him 2 months ago Discharge Plan Comments Coordination Status Comments Notes: Patient is a 43yo male, brought by EMS after being found confused and covered in bloody emesis to [facility]. Patient is being admitted for blood loss anemia, acute hepatitis, encephalopathy, coagulopathy, thrombocytopenia, hypokalemia, ETOH abuse and mood disorder. PT/OT/NEW VEHICLE SALES CONSULTANT have been ordered. Cage to be completed when the patient is able to participate. Spoke with patient's sister about being proxy for him. She has confirmed serving as proxy with myself and Dr. Hernandez. Patient was going to give me a fax number for today so she can sign the paperwork. She has not returned my call as of 4:48 PM today. Placed paperwork in the front of the chart.Keshia did tell me she wants to know d/c date because she wants to be here to stay with the patient. The family is interested in moving the patient back to [place]. Keshia states his left him 2 months ago and he does not have a support system here. D/C plan TBD. CM will follow. Date Signed: 09/01/2018 04:51 PM Electronically Signed By:Anu Newell LCSW
[2018-09-01] MEDS: PANTOPRAZOLE SODIUM 40 MG TAB PO SCH (20:03)
[2018-09-01] MEDS ORDERED: traZODone 50 MG TAB PO PRN (23:11)
[2018-09-02] MEDS ORDERED: POTASSIUM CL 10 MEQ TAB PO ONE ×2 (01:59→08:45)
[2018-09-02 06:37] LABS: INR 1.75 (0.83-1.16); PROTIME(PATIENT) 20.5 SEC (12.0-15.0)
[2018-09-02] MEDS ORDERED: prednisoLONE 15 MG/5 ML ORAL UD LIQ PO SCH (09:00)
[2018-09-02] MEDS: NADOLOL 20 MG TAB PO SCH (09:41)
[2018-09-02] MEDS: LACTULOSE 20 GM/30 ML UDCUP PO SCH (09:41)
[2018-09-02] MEDS: THIAMINE HCL 100 MG TAB PO SCH (09:41)
[2018-09-02 09:42] VITALS: BP 143/84
[2018-09-02] MEDS: PANTOPRAZOLE SODIUM 40 MG TAB PO SCH (09:42)
--- NOTE | 2018-09-02 12:51 | PDDCSUM ---
Discharge Summary Discharge Summary: Date of Admission: 08/30/2018 Date of Discharge: 09/02/2018 Consultants: gastroenterology, caponizer Procedures/Studies: 1. Abdominal US 2. EGD Discharge Diagnoses: 1. Acute blood loss anemia 2. Recently bleeding grade II esophageal varices s/p banding 3. Acute alcoholic hepatitis 4. Alcoholic cirrhosis with portal hypertension 5. Acute metabolic encephalopathy, resolved 6. Portal vein thrombosis 7. Coagulopathy 8. Thrombocytopenia 9. Hypokalemia 10. Severe alcohol abuse disorder Brief Hospital Course: 43yo M alcoholic who was brought in by EMS after welfare check initiated by family. He was found confused and covered in bloody emesis and dark stools. Work up revealed severe anemia, thrombocytopenia, coagulopathy, and abnormal LFTs. An ultrasound of his liver showed cirrhosis and a portal vein thrombosis. He was obtunded on admission. He underwent an EGD after correction of his electrolyte disturbances which showed two recently bleeding esophageal varices which were banded with good result. He was transfused 2 units PRBC and his hemoglobin remained stable. His Maddrey Discriminant Function score was >50 based on admission labs, and he was started on steroids after his source of bleeding was controlled. He was started on lactulose and his mental status improved to normal. His LFTs were improving. He was initially on CIWA protocol but did not show any signs of withdrawal so this was discontinued. I discussed his new diagnosis of cirrhosis with him. I emphasized the extreme importance of no more alcohol consumption. He reports being motivated to quit drinking alcohol and has a plan to go into inpatient rehabilitation (which he's done several times before), as well as establish with a PCP and psychiatrist. I recommended that the patient stay an additional night in the hospital for ongoing monitoring; however, he refused. It is my opinion that he is medically stable and thus is not discharging against medical advice. He is of sound decision-making capacity at time of discharge. Of note, I did speak with his next-of-kin, sister Keshia and [id number] Saad Ferrer, when the patient was confused and unable to make decisions for himself. They report his left him prior to this recent binge. He has been in rehab several times but it has not worked. Keshia and Saad are planning on coming out to [place] and bringing the patient back to [place] (where they live) so he can be close by family support. Once the patient's encephalopathy resolved, he told me that he did not want me to further discuss any of his medical care with family, and I obliged to these wishes. Medications: Please refer to EMR for complete list. I wrote prescriptions for nadolol 20mg QD, pantoprazole 40mg QD, and lactulose 20gm TID and sent them to his pharmacy. I did not discharge him with steroids (prednisolone). Follow Up Plan: 1. Establish with PCP 2. He is planning on going into inpatient rehabilitation for his etoh abuse at [place] 3. He is planning on establishing with a psychiatrist and has a number to set up this appointment 4. Absolutely no additional etoh 5. Repeat EGD in 4 weeks for repeat variceal treatment Physical Exam: Vitals reviewed, normotensive. Alert and oriented, no asterixis, no hand tremor or tongue fasciculations. RRR without m/r/g, lungs clear, abdomen slightly distended but nontender. No leg edema. No rashes.
--- NOTE | 2018-09-02 13:05 | ASMTCAGE ---
CAGE Do you feel you ought to Answers: Yes cut down on your drinking or drug use? Do people annoy you by Answers: Yes criticizing your drinking or drug use? Do you feel guilty about Answers: Yes your drinking or drug use? 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 Additional Comments pt reports consuming 1 pint of vodka/day. Date Signed: 09/02/2018 01:04 PM Electronically Signed By:Gricelda Rahman RN
--- NOTE | 2018-09-02 13:10 | ASMTDCNOTE ---
Case Management Discharge Discharge Order Complete? Answers: Yes Patient to Obtain Answers: Independently Medications Transportation Arranged Answers: Taxi - Self Pay Family Notified Answers: Yes Discharge Comments Notes: 09/02/2018 Case Management Note Pt family involved from [place]. Brother in law Saad Dillon [phone] plans to arrive tomorrow. Pt to call taxi and self ay. Pt is in process of intake assessment with [facility] inpatient rehab. Provided Financial Counseling info. Case Management d/c poc: independent with follow up as directed. Date Signed: 09/02/2018 01:09 PM Electronically Signed By:Gricelda Rahman RN
--- NOTE | 2018-09-02 13:11 | ASDISCHSUM ---
Discharge Information Plan Status:Home with No Needs Medically Cleared to Leave:09/01/2018 Discharge Date:09/01/2018 CM D/C Disposition:Home, Routine, Self-Care ADT D/C Disposition:Home, Routine, Self-Care Projected Discharge Date:09/01/2018 Transportation at D/C:Self Discharge Delay Reason: Follow-Up Date:09/01/2018 Discharge Slot: Final Diagnosis: Placement Information Patient Contact Information Contact Name:VANNESSA Relationship:Sister Address:[address] City:[place] Alternate Phone: [facility]/Zip Code:[place] [address] Email: Financial Information Financial Class:HMO and PPO Plans Primary Plan Desc:[employer] ANGELIA ROBERTS Primary Plan Number:[id number] Secondary Plan Desc: Secondary Plan Number: Assessment Information LACE LACE Length of stay for Answers: 3 days current admission Acuity / Level of Answers: Yes Care: Did the patient have an inpatient admission? Comorbidities - select Answers: Other Notes: HTN all that apply # of Emergency department Answers: 1-2 visits in the last 6 months Social determinants Answers: History of substance abuse (ETOH, street drugs, prescription drugs, etc.) Mental health diagnosis (anxiety, depression, pers onality disorders, etc.) Score: 14 Date Signed: 09/02/2018 01:10 PM Electronically Signed By:Gricelda Rahamn RN [facility] Initial CM Assessment Living Arrangements What is your living Answers: Alone arrangement? Who do you live with? Type Of Residence What kind of residence do Answers: House you live in? Type of Residence Facility Name Notes: Patient's left him 2 months ago Discharge Plan Comments Coordination Status Comments Notes: Patient is a 43yo male, brought by EMS after being found confused and covered in bloody emesis to [facility]. Patient is being admitted for blood loss anemia, acute hepatitis, encephalopathy, coagulopathy, thrombocytopenia, hypokalemia, ETOH abuse and mood disorder. PT/OT/BIOLOGY SPECIALIST have been ordered. Cage to be completed when the patient is able to participate. Spoke with patient's sister about being proxy for him. She has confirmed serving as proxy with myself and Dr. Hernandez. Patient was going to give me a fax number for today so she can sign the paperwork. She has not returned my call as of 4:48 PM today. Placed paperwork in the front of the chart.Keshia did tell me she wants to know d/c date because she wants to be here to stay with the patient. The family is interested in moving the patient back to [place]. Keshia states his left him 2 months ago and he does not have a support system here. D/C plan TBD. CM will follow. Date Signed: 09/01/2018 04:51 PM Electronically Signed By:Anu Newell LCSW CAGE Questionnaire CAGE Do you feel you ought to Answers: Yes cut down on your drinking or drug use? Do people annoy you by Answers: Yes criticizing your drinking or drug use? Do you feel guilty about Answers: Yes your drinking or drug use? 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 Date Signed: 09/02/2018 01:04 PM Electronically Signed By:Gricelda Rahman RN Case Management Discharge Plan Note Case Management Discharge Discharge Order Complete? Answers: Yes Patient to Obtain Answers: Independently Medications Transportation Arranged Answers: Taxi - Self Pay Family Notified Answers: Yes Discharge Comments Notes: 09/02/2018 Case Management Note Pt family involved from [place]. Brother in law Saad Dillon [phone] plans to arrive tomorrow. Pt to call taxi and self ay. Pt is in process of intake assessment with [facility] rehab. Provided Financial Counseling info. Case Management d/c poc: independent with follow up as directed. Date Signed: 09/02/2018 01:09 PM Electronically Signed By:Gricelda Rahman RN Intervention Information
== END 2018-09-02 13:30 | disposition home or self-care (01) | DRG 432 ==
LOC: EDUNIT# → EEVIPCON 10:49 → F2N 15:15
PROVIDERS: ADMIT Internal Medicine; ATTEND Internal Medicine
PROC: 30233N1 Transfusion of Nonautologous Red Blood Cells into Peripheral Vein, Percutaneous Approach (ICD-10-PCS; principal; 2018-08-30)
PROC: 0DB68ZX Excision of Stomach, Via Natural or Artificial Opening Endoscopic, Diagnostic (ICD-10-PCS; 2018-08-31)
PROC: 06L38CZ Occlusion of Esophageal Vein with Extraluminal Device, Via Natural or Artificial Opening Endoscopic (ICD-10-PCS; 2018-08-31)
DX: K70.30 Alcoholic cirrhosis of liver without ascites (principal); I85.11 Secondary esophageal varices with bleeding; K70.40 Alcoholic hepatic failure without coma; K70.10 Alcoholic hepatitis without ascites; K76.6 Portal hypertension; D62 Acute posthemorrhagic anemia; D68.4 Acquired coagulation factor deficiency; F10.239 Alcohol dependence with withdrawal, unspecified; I10 Essential (primary) hypertension; E87.6 Hypokalemia; D69.6 Thrombocytopenia, unspecified
CPT/HCPCS: 80307; 92523-GN; 96365; 96366; 97116-GP; 97162-GP; 97166-GO; 97530-GP; G0472; G0480; J2060; J2405; J2704; J2920; J3475; J3480; J7510; P9016

== ENCOUNTER 2018-10-08 15:53 | Emergency (ER) | payer OTHER ==
--- NOTE | 2018-10-08 16:56 | EDPHY ---
H & P Time Seen by Provider: 10/08/18 16:23 HPI/ROS: HPI Alcohol abuse. Once detox. 43-year-old male by ambulance. He has a long history of alcohol abuse. He drinks at least a pt of vodka per day. He states that his last drink was at about 11:00 a.m. This morning. He is looking for a detox program to be admitted to. I explained to him that our hospital does not offer a detox program. Explain to him that I could prescribe him Valium or Librium and arrange for transport to the [facility]. He is not sure that he wants to do this. He is not suicidal. He does tell me though that he does not think he can't stop drinking alcohol on his own. Of note, the patient had some dried blood around his lips. He states that he has not had a seizure. He denies any vomiting. ROS: Constitutional: No fever, no chills. As above. Respiratory: No cough. No shortness of breath. Cardiac: No chest pain, no palpitations. Gastrointestinal: No abdominal pain, no vomiting, no diarrhea. Genitourinary: No hematuria. No dysuria or increased frequency with urination. Musculoskeletal: No back pain. No neck pain. No myalgias or arthralgias. Skin: No rashes. Neurological: No headache. No focal weakness or altered sensation. Past medical history: Hypertension. Alcohol abuse. Social history: He has a sister who he wants to talk to regarding possible transfer to the [facility]. He is currently here by himself. Denies smoking. As above. Physical Exam: General Appearance: Alert, he is not in distress. This patient is responding to questions appropriately and in full sentences. This patient appears well- hydrated and well-nourished. Eyes: Pupils equal and round no pallor or injection. No lid edema, erythema or injection. ENT, Mouth: Mucous membranes are moist. The pharyngeal tissues are unremarkable. No edema or swelling. No asymmetry suggestive of abscess. No erythema or exudates. He does have some dried blood around his lips as noted above. No tongue lacerations or abrasions. Posterior pharynx is normal. Respiratory: There are no retractions, lungs are clear to auscultation with good air movement bilaterally. Cardiovascular: Regular rate and rhythm. No murmur. Gastrointestinal: Abdomen is soft and nontender, no masses, bowel sounds normal. No focal tenderness at McBurney's point. No Rodriguez sign. Neurological: Motor sensory function is grossly intact. Cranial nerves are normal. Gait is normal. He does not have a significant resting tremor. Skin: Warm and dry, no rashes. Musculoskeletal: Neck is supple and nontender. Extremities are symmetrical. All joints range without pain or impingement. Psychiatric: No agitation. No depression. Database: EKG: Imaging: Procedures: Emergency department course: Triage vital signs reviewed. He is hypertensive. Vital signs are otherwise unremarkable. He is not significantly tremulous. He is not displaying significant signs of alcohol withdrawal at this time. I explained to him that we do not offer an alcohol detox program at this hospital. I did discuss [place]. I also explained to him that I was happy to arrange for transport to the [facility] with Librium to help with initial detox. He is not sure he wants to do this. 5:00 p.m., the patient is in agreement to be transfer to the [facility] with a Librium Dosepak. We also discussed this with his sister. He has been through this exact same scenario multiple times. The patient's remaining emergency department course under my care has been uneventful. He was transferred to the [facility] with a sober ride in stable condition. Differential Diagnosis: The differential diagnosis on this patient includes but is not limited to alcohol abuse, mild alcohol withdrawal. Delirium tremens, alcohol withdrawal seizure, alcoholic gastritis, gastrointestinal bleeding unlikely. This represents a partial list of diagnoses considered. These considerations are based on history, physical exam, past history, reassessment and diagnostic testing. Smoking Status: Never smoked Constitutional: Initial Vital Signs Temperature (C) 36.7 C 10/08/18 15:56 Heart Rate 95 10/08/18 15:56 Respiratory Rate 16 10/08/18 15:56 Blood Pressure 175/100 H 10/08/18 15:56 O2 Sat (%) 92 10/08/18 15:56 O2 Delivery Mode Room Air Allergies/Adverse Reactions: No Known Allergies Allergy (Verified 10/03/18 18:05) Home Medications: Medication Instructions Recorded Atomoxetine HCl [Strattera] 60 mg PO DAILY 08/30/18 Lactulose [Generlac] 20 gm PO TID #2000 ml 09/02/18 Nadolol [Nadolol 20 mg (*)] 20 mg PO DAILY #30 tab 09/02/18 Pantoprazole Sodium [Protonix 40mg 40 mg PO DAILY #30 tab 09/02/18 (*)] Departure - Departure Disposition: Home, Routine, Self-Care Clinical Impression: Alcohol abuse Condition: Good Instructions: Abuse of Alcohol (ED) Additional Instructions: Read and follow provided instructions. Follow-up with your primary care physician in 2-3 days for re-evaluation and to discuss alcohol detox programs. Librium medication will be administered by the [facility] staff to help with withdrawal symptoms. Return to the emergency department for worsening symptoms, alcohol withdrawal seizure, vomiting or other serious concerns. Referrals: [facility] Detox 24 Hours [Outside] - As per Instructions
[2018-10-08] MEDS ORDERED: CHLORDIAZEPOXIDE 25MG PREPK#6 BTL TAKEHOME ONE (16:57)
[2018-10-08 17:33] VITALS: BP 166/109
== END 2018-10-08 17:33 | disposition home or self-care (01) ==
LOC: EDUNIT#
DX: F10.129 Alcohol abuse with intoxication, unspecified (principal); I10 Essential (primary) hypertension

== ENCOUNTER 2018-10-12 16:04 | Inpatient (IN) | payer OTHER ==
--- NOTE | 2018-10-12 17:06 | EDPHY ---
H & P Time Seen by Provider: 10/12/18 17:04 HPI/ROS: CHIEF COMPLAINT: Vomiting blood HISTORY OF PRESENT ILLNESS: 41-year-old man has history of alcohol abuse and was admitted recently with a endoscopy in August 31 showing varices and hematocrit on the 02 of September at was 25 with a hemoglobin of 9. He was in detox and get out 3 days ago and has had alcohol since. At 10:30 a.m. Today vomited a large amount of bright red blood. Presents to the emergency department worried about that but has not had further episodes of vomiting, or abdominal pain. REVIEW OF SYSTEMS: Eye: no change in vision ENT: no sore throat Cardiac: no chest pain or syncope Pulmonary: no cough or SOB Abdomen: HPI Musculoskeletal: no back pain Skin: no rash Neuro: no headache Constitutional: no fever : no urinary symptoms A comprehensive 10 point review of systems is otherwise negative aside from elements mentioned in the history of present illness. PAST MEDICAL HISTORY: Gastroenterology EGD note dated 08/31/2018 notes grade 2 esophageal varices. Hypertension. Social history: Recent alcohol General Appearance: Alert and conversant, cooperative. Eyes: No scleral icterus. ENT, Mouth: Normal mucous membranes. Respiratory: Normal respiratory effort, breath sounds equal, lungs are clear to auscultation. Cardiovascular: Regular rate and rhythm. Gastrointestinal: Abdomen is soft and non tender. No rebound or guarding. Neurological: Alert, face symmetric, normal motor and sensory in extremities. Skin: Warm and dry, no rashes. Musculoskeletal: No peripheral edema. Psychiatric: Not agitated. Emergency Department course/MDM: My suspicion for recurrent upper GI bleed with documented recent esophageal varices. [place] to admit, start octreotide and PPI. 1719: I-STAT hemoglobin and hematocrit is 11 and 35. 1737: Platelet ordered for 23,000 with actively bleeding. Patient received 2 g IV magnesium and 10 meq IV potassium for hypokalemia. Smoking Status: Never smoked Constitutional: Initial Vital Signs Temperature (C) 37.2 C 10/12/18 16:57 Heart Rate 110 H 10/12/18 16:57 Respiratory Rate 16 10/12/18 16:57 Blood Pressure 158/103 H 10/12/18 16:57 O2 Sat (%) 92 10/12/18 16:57 O2 Delivery Mode Room Air Allergies/Adverse Reactions: No Known Allergies Allergy (Verified 10/12/18 16:57) Home Medications: Medication Instructions Recorded NK [No Known Home Meds] 10/12/18 Medical Decision Making - Diagnostics EKG Interpretation: 12-lead EKG interpreted by me; official reading is in computer system. My interpretation is sinus rhythm with borderline left axis Critical Care Time: Critical care time spent by me, Dr. Young, exclusively with the care of this patient was 40 minutes, exclusive of PA or LAW WRITER time and exclusive of separate procedures. The organ system at risk was metabolic and hematologic and I ordered IV platelets, IV potassium and magnesium, octreotide, PPI to stabilize the patient and prevent worsening of the patient's condition. - Data Points Laboratory Results: Laboratory Results 10/12/18 17:13 10/12/18 17:13 10/12/18 10/12/18 10/12/18 17:19 17:13 17:13 WBC RBC Hgb POC Hgb 11.9 gm/dL L gm/dL (13.7-17.5) Hct POC Hct 35 % L % (40-51) MCV MCH MCHC RDW Plt Count MPV Neut % (Auto) Lymph % (Auto) [place] % (Auto) Eos % (Auto) Baso % (Auto) Nucleat RBC Rel Count Absolute Neuts (auto) Absolute Lymphs (auto) Absolute Monos (auto) Absolute Eos (auto) Absolute Basos (auto) Absolute Nucleated RBC Immature Gran % Immature Gran # Platelet Estimate Smear Review By PT INR APTT POC Sodium 143 mEq/L mEq/L (135-145) Sodium 138 mEq/L mEq/L (135-145) POC Potassium 2.6 mEq/L L* mEq/L (3.3-5.0) Potassium 2.7 mEq/L L* mEq/L (3.5-5.2) POC Chloride 101 mEq/L mEq/L (97-110) Chloride 106 mEq/L mEq/L (97-110) Carbon Dioxide 22 mEq/l mEq/l (22-31) POC Total CO2 24 mEq/L mEq/L (22-31) Anion Gap 10 mEq/L mEq/L (6-14) POC BUN < 3 mg/dL L mg/dL (7-23) BUN 5 mg/dL L mg/dL (7-23) Creatinine 0.5 mg/dL L mg/dL (0.7-1.3) POC Creatinine 0.8 mg/dL mg/dL (0.7-1.3) Estimated GFR > 60 Glucose 93 mg/dL mg/dL (70-100) POC Glucose 89 mg/dL mg/dL (70-100) Calcium 8.2 mg/dL L mg/dL (8.5-10.4) Patient ABO/Rh B POSITIVE Antibody Screen NEGATIVE Platelet Orders Status READY 10/12/18 10/12/18 17:13 17:13 WBC 3.26 10^3/uL L 10^3/uL (3.80-9.50) RBC 3.76 10^6/uL L 10^6/uL (4.40-6.38) Hgb 11.3 g/dL L g/dL (13.7-17.5) POC Hgb Hct 32.9 % L % (40.0-51.0) POC Hct MCV 87.5 fL fL (81.5-99.8) MCH 30.1 pg pg (27.9-34.1) MCHC 34.3 g/dL g/dL (32.4-36.7) RDW 15.6 % H % (11.5-15.2) Plt Count 23 10^3/uL L* 10^3/uL (150-400) MPV TNP Neut % (Auto) 63.8 % % (39.3-74.2) Lymph % (Auto) 26.1 % % (15.0-45.0) [place] % (Auto) 8.9 % % (4.5-13.0) Eos % (Auto) 0.6 % % (0.6-7.6) Baso % (Auto) 0.6 % % (0.3-1.7) Nucleat RBC Rel Count 0.0 % % (0.0-0.2) Absolute Neuts (auto) 2.08 10^3/uL 10^3/uL (1.70-6.50) Absolute Lymphs (auto) 0.85 10^3/uL L 10^3/uL (1.00-3.00) Absolute Monos (auto) 0.29 10^3/uL L 10^3/uL (0.30-0.80) Absolute Eos (auto) 0.02 10^3/uL L 10^3/uL (0.03-0.40) Absolute Basos (auto) 0.02 10^3/uL 10^3/uL (0.02-0.10) Absolute Nucleated RBC 0.00 10^3/uL 10^3/uL (0-0.01) Immature Gran % 0.0 % % (0.0-1.1) Immature Gran # 0.00 10^3/uL 10^3/uL (0.00-0.10) Platelet Estimate DECREASED L (ADEQ) Smear Review By Pending PT 19.7 SEC H SEC (12.0-15.0) INR 1.66 H (0.83-1.16) APTT 31.8 SEC SEC (23.0-38.0) POC Sodium Sodium POC Potassium Potassium POC Chloride Chloride Carbon Dioxide POC Total CO2 Anion Gap POC BUN BUN Creatinine POC Creatinine Estimated GFR Glucose POC Glucose Calcium Patient ABO/Rh Antibody Screen Platelet Orders Status Medications Given: Discontinued Medications Sodium Chloride (Ns) 1,000 mls @ 0 mls/hr IV EDNOW ONE; Wide Open PRN Reason: Protocol Stop: 10/12/18 17:14 Last Admin: 10/12/18 17:35 Dose: 1,000 mls Octreotide Acetate 500 mcg/ (Sodium Chloride) 51 mls @ 5 mls/hr IV CONT FRANSISCO Stop: 04/10/19 17:29 Last Admin: 10/12/18 18:12 Dose: 51 mls Magnesium Sulfate (Magnesium Sulf 2 Gm (Premix)) 50 mls @ 50 mls/hr IV EDNOW ONE Stop: 10/12/18 18:21 Last Admin: 10/12/18 17:39 Dose: 50 mls Potassium Chloride (Potassium Cl 10 Meq (Premix)) 100 mls @ 100 mls/hr IV EDNOW ONE Stop: 10/12/18 18:21 Last Admin: 10/12/18 17:43 Dose: 100 mls Pantoprazole Sodium (Protonix) 80 mg IVP EDNOW ONE Stop: 10/12/18 17:14 Last Admin: 10/12/18 17:36 Dose: 80 mg Point of Care Test Results: Chemistry 10/12/18 17:19 POC Sodium 143 mEq/L mEq/L (135-145) POC Potassium 2.6 mEq/L L* mEq/L (3.3-5.0) POC Chloride 101 mEq/L mEq/L (97-110) POC Total CO2 24 mEq/L mEq/L (22-31) POC BUN < 3 mg/dL L mg/dL (7-23) POC Creatinine 0.8 mg/dL mg/dL (0.7-1.3) POC Glucose 89 mg/dL mg/dL (70-100) ISTAT H&H 10/12/18 17:19 POC Hgb 11.9 gm/dL L gm/dL (13.7-17.5) POC Hct 35 % L % (40-51) Departure - Departure Disposition: [facility] Inpatient Acute Clinical Impression: Upper GI bleed, Hypokalemia Condition: Serious
[2018-10-12] MEDS ORDERED: PANTOPRAZOLE SODIUM 40 MG VIAL IVP ONE (17:13)
[2018-10-12] MEDS ORDERED: NS 1,000 ML IV ONE (17:13)
[2018-10-12] MEDS ORDERED: MAGNESIUM SULF 2 GM/WATER 50 ML IV ONE (17:22)
[2018-10-12] MEDS ORDERED: POTASSIUM Cl (KCl) 100 ML IV ONE (17:22)
[2018-10-12] MEDS ORDERED: OCTREOTIDE ACETATE 500 MCG in NS 50 ML IV SCH ×2 (17:30→18:45)
[2018-10-12 17:34] LABS: PLATELET COUNT 23 10^3/uL (150-400)
[2018-10-12] MEDS ORDERED: PANTOPRAZOLE SODIUM 40 MG VIAL ONE (17:36)
[2018-10-12 17:41] LABS: INR 1.66 (0.83-1.16); PROTIME(PATIENT) 19.7 SEC (12.0-15.0)
--- NOTE | 2018-10-12 18:22 | CPEKG ---
Test Reason : OPEN Blood Pressure : / mmHG Vent. Rate : 099 BPM Atrial Rate : 100 BPM P-R Int : 150 ms QRS Dur : 102 ms QT Int : 380 ms P-R-T Axes : 041 -28 053 degrees QTc Int : 488 ms Sinus rhythm Borderline left axis deviation Borderline prolonged QT interval Confirmed by Archana Munoz ([id number]) on 10/12/2018 6:22:12 PM Referred By: ARCHANA MUNOZ Confirmed By:Archana Munoz
[2018-10-12] MEDS ORDERED: ACETAMINOPHEN 325 MG TAB PO PRN (18:43)
[2018-10-12] MEDS ORDERED: NS 1,000 ML IV SCH (18:45)
[2018-10-12] MEDS ORDERED: PROTOCOL MAGNESIUM 1 DOSE IV PRN (18:46)
[2018-10-12] MEDS ORDERED: PROTOCOL POTASSIUM 1 DOSE MISC PRN (18:46)
--- NOTE | 2018-10-12 18:59 | PDGENHP ---
History and Physical - Chief Complaint blood in vomit - History of Present Illness 43yo M with recently diagnosed alcohol cirrhosis with history of esophageal variceal bleed presents with blood in vomit. Was diagnosed with cirrhosis and complications of portal hypertension including esophageal varices during hospitalization 08/2018. He underwent EGD during that hospitalization which showed 2 columns of recently bleeding grade 2 esophageal varices which were banded. Portal hypertensive gastropathy was also seen. He was discharged on nadolol and a PPI. He reports that he had been abstinent from alcohol until just a few days ago when he drank a pint of liquor. He came to this ED requesting inpatient rehab placement and was sent to the [facility]. He was receiving librium there and was discharged yesterday. This morning, he had an episode of bright red blood in his vomit after eating breakfast. There has been no recurrence of this. He has noticed increasing abdominal distention and has diffuse abdominal pain. No fevers/chills. No diarrhea. He hasn't noticed any leg swelling. He hasn't been taking any medications. In the ED, he is mildly tachycardic with a HR in the 100s. His BP is actually slightly elevated. His hemoglobin is 11.3, up from 9 at discharge a month ago. He was given ceftriaxone, octreotide, and PPI and is being admitted for further care. Case discussed with ED physician Carlos Alberto Young. History Information - Allergies/Home Medication List Allergies/Adverse Reactions: No Known Allergies Allergy (Verified 10/12/18 16:57) Home Medications: NK [No Known Home Meds] 10/12/18 [Last Taken Unknown] I have personally reviewed and updated: family history, medical history, social history, surgical history - Past Medical History Additional medical history: alcohol abuse, alcohol cirrhosis with portal hypertension, esophageal variceal bleed s/p banding, portal vein thrombosis, cirrhosis-induced coagulopathy and thrombocytopenia - Surgical History Reports: no pertinent surgical hx - Family History Positive for: non-pertinent - Social History Smoking Status: Never smoked Alcohol Use: Heavy (prior heavy use, reports abstinence for ~1 month before relapsing recently) Drug Use: None Additional social history: Moved to [place] in 2017. Has sister and brother-in- law in [place]. Review of Systems Review of Systems: ROS: 10pt was reviewed & negative except for what was stated in HPI & below Physical Exam Physical Exam: Temp Pulse Resp BP Pulse Ox 36.9 C 99 18 141/94 H 96 10/12/18 18:45 10/12/18 18:45 10/12/18 18:45 10/12/18 18:45 10/12/18 18:45 Constitutional: no apparent distress, appears nourished, not in pain Eyes: PERRL, anicteric sclera, EOMI Ears, Nose, Mouth, Throat: moist mucous membranes, hearing normal, ears appear normal, no oral mucosal ulcers Cardiovascular: no murmur, rub, or gallop, tachycardia, No edema Respiratory: no respiratory distress, no rales or rhonchi, clear to auscultation Gastrointestinal: tenderness, distension, No guarding, No rebound Genitourinary: no bladder fullness, no bladder tenderness Skin: warm, normal color, no rashes or abrasions, no fluctuance, no induration, No mottled Musculoskeletal: full muscle strength, no muscle tenderness, normal joint ROM, no joint effusions Neurologic: AAOx3, other (no hand tremor or tongue fasciculations), No asterixes Psychiatric: interacting appropriately Lab Data & Imaging Review 10/12/18 17:13 10/12/18 17:13 WBC 3.26 10^3/uL (3.80-9.50) L 10/12/18 17:13 RBC 3.76 10^6/uL (4.40-6.38) L 10/12/18 17:13 Hgb 11.3 g/dL (13.7-17.5) L 10/12/18 17:13 POC Hgb 11.9 gm/dL (13.7-17.5) L 10/12/18 17:19 Hct 32.9 % (40.0-51.0) L 10/12/18 17:13 POC Hct 35 % (40-51) L 10/12/18 17:19 MCV 87.5 fL (81.5-99.8) 10/12/18 17:13 MCH 30.1 pg (27.9-34.1) 10/12/18 17:13 MCHC 34.3 g/dL (32.4-36.7) 10/12/18 17:13 RDW 15.6 % (11.5-15.2) H 10/12/18 17:13 Plt Count 23 10^3/uL (150-400) L* 10/12/18 17:13 MPV TNP 10/12/18 17:13 Neut % (Auto) 63.8 % (39.3-74.2) 10/12/18 17:13 Lymph % (Auto) 26.1 % (15.0-45.0) 10/12/18 17:13 Lane % (Auto) 8.9 % (4.5-13.0) 10/12/18 17:13 Eos % (Auto) 0.6 % (0.6-7.6) 10/12/18 17:13 Baso % (Auto) 0.6 % (0.3-1.7) 10/12/18 17:13 Nucleat RBC Rel Count 0.0 % (0.0-0.2) 10/12/18 17:13 Absolute Neuts (auto) 2.08 10^3/uL (1.70-6.50) 10/12/18 17:13 Absolute Lymphs (auto) 0.85 10^3/uL (1.00-3.00) L 10/12/18 17:13 Absolute Monos (auto) 0.29 10^3/uL (0.30-0.80) L 10/12/18 17:13 Absolute Eos (auto) 0.02 10^3/uL (0.03-0.40) L 10/12/18 17:13 Absolute Basos (auto) 0.02 10^3/uL (0.02-0.10) 10/12/18 17:13 Absolute Nucleated RBC 0.00 10^3/uL (0-0.01) 10/12/18 17:13 Immature Gran % 0.0 % (0.0-1.1) 10/12/18 17:13 Immature Gran # 0.00 10^3/uL (0.00-0.10) 10/12/18 17:13 Platelet Estimate DECREASED (ADEQ) L 10/12/18 17:13 PT 19.7 SEC (12.0-15.0) H 10/12/18 17:13 INR 1.66 (0.83-1.16) H 10/12/18 17:13 APTT 31.8 SEC (23.0-38.0) 10/12/18 17:13 POC Sodium 143 mEq/L (135-145) 10/12/18 17:19 Sodium 138 mEq/L (135-145) 10/12/18 17:13 POC Potassium 2.6 mEq/L (3.3-5.0) L* 10/12/18 17:19 Potassium 2.7 mEq/L (3.5-5.2) L* 10/12/18 17:13 POC Chloride 101 mEq/L (97-110) 10/12/18 17:19 Chloride 106 mEq/L (97-110) 10/12/18 17:13 Carbon Dioxide 22 mEq/l (22-31) 10/12/18 17:13 POC Total CO2 24 mEq/L (22-31) 10/12/18 17:19 Anion Gap 10 mEq/L (6-14) 10/12/18 17:13 POC BUN < 3 mg/dL (7-23) L 10/12/18 17:19 BUN 5 mg/dL (7-23) L 10/12/18 17:13 Creatinine 0.5 mg/dL (0.7-1.3) L 10/12/18 17:13 POC Creatinine 0.8 mg/dL (0.7-1.3) 10/12/18 17:19 Estimated GFR > 60 10/12/18 17:13 Glucose 93 mg/dL (70-100) 10/12/18 17:13 POC Glucose 89 mg/dL (70-100) 10/12/18 17:19 Calcium 8.2 mg/dL (8.5-10.4) L 10/12/18 17:13 Patient ABO/Rh B POSITIVE 10/12/18 17:13 Antibody Screen NEGATIVE 10/12/18 17:13 Platelet Orders Status READY 10/12/18 17:13 EKG additional interpertation: ECG: sinus tachy, borderline left axis, prolonged QTc, no ischemic changes Assessment & Plan Assessment: 43yo M with recently diagnosed alcohol cirrhosis with history of esophageal variceal bleed presents with blood in vomit. Plan: #Hematemesis with anemia: Concern for variceal bleed. He is mildly tachycardic but BP ok. H/H higher than prior. - Continue octreotide gtt, PPI IV BID, ceftriaxone - Serial H/H, NPO - Type and screened, transfuse to keep hgb>7 - Consulted GI for upper endoscopy #Acute on chronic thrombocytopenia: Suspect consumptive process from bleed - s/p transfusion 1 unit platelets, recheck in AM #Coagulopathy: Due to liver disease. INR 1.6 - Hold on vitamin K administration #Severe hypokalemia - Started on repletion and will place on K and Mg protocol, monitor on telemetry #Abdominal distention: Suspect ascites. - Check abdominal US, will likely require diuretics once bleed stabilized #EtOH cirrhosis: - Getting LFTs, calculate MELD once obtained for prognostic purposes - He is not currently encephalopathic but was previously on lactulose #EtOH abuse: Recent relapse after 1 month of sobriety. He does not appear to be in withdrawal at this time and will hold on CIWA. #Portal vein thrombosis: Noted on imaging from 08/2018. No indication for anticoagulation. VTE ppx: SCDs Code: full Dispo: Admit as inpatient to step down unit
[2018-10-12] MEDS ORDERED: PHYTONADIONE 10 MG in NS 50 ML IV ONE (21:00)
[2018-10-12] MEDS: PANTOPRAZOLE SODIUM 40 MG VIAL IVP SCH (22:21)
[2018-10-12] MEDS: THIAMINE HCL 100 MG TAB PO SCH (22:21)
[2018-10-12] MEDS: FOLIC ACID 1 MG TAB PO SCH (22:21)
[2018-10-12] MEDS: MULTIVITAMINS W-MINERALS 1 EACH TAB PO SCH (22:22)
[2018-10-12] MEDS ORDERED: POTASSIUM CL 10 MEQ TAB PO ONE (22:27)
[2018-10-12] MEDS: D5W 1/2 NS W/ 20 KCl/L 1,000 ML IV SCH (23:17)
[2018-10-13] MEDS ORDERED: SIMETHICONE 80 MG TAB CHEW PO PRN (00:21)
[2018-10-13 06:12] LABS: PLATELET COUNT 34 10^3/uL (150-400)
[2018-10-13] MEDS ORDERED: MAGNESIUM SULF 2 GM/WATER 50 ML IV ONE (08:34)
[2018-10-13] MEDS: POTASSIUM Cl (KCl) 100 ML IV SCH ×6 (08:49→23:42)
[2018-10-13] MEDS: FOLIC ACID 1 MG TAB PO SCH (08:55)
[2018-10-13] MEDS: PANTOPRAZOLE SODIUM 40 MG VIAL IVP SCH ×2 (08:55→23:08)
[2018-10-13] MEDS: MULTIVITAMINS W-MINERALS 1 EACH TAB PO SCH (08:56)
[2018-10-13] MEDS: THIAMINE HCL 100 MG TAB PO SCH (08:56)
[2018-10-13] MEDS ORDERED: PROPOFOL/EMULSION 500 MG/50 ML BOTTLE IV ONE (09:19)
[2018-10-13] MEDS ORDERED: MIDAZOLAM 2 MG/2 ML VIAL ONE (09:22)
--- NOTE | 2018-10-13 09:35 | PDANEPAE ---
ANE History of Present Illness 43 year old male for EGD for gi bleeding. History of alcohol abuse and gi bleed. ANE Past Medical History - Cardiovascular History Hx Hypertension: Yes Hx Arrhythmias: No Hx Chest Pain: No Hx Coronary Artery / Peripheral Vascular Disease: No Hx CHF / Valvular Disease: No Hx Palpitations: No - Pulmonary History Hx COPD: No Hx Asthma/Reactive Airway Disease: No Hx Recent Upper Respiratory Infection: No Hx Oxygen in Use at Home: No Hx Sleep Apnea: No - Neurologic History Hx Cerebrovascular Accident: No Hx Seizures: No Hx Dementia: No - Endocrine History Hx Diabetes: No - Renal History Hx Renal Disorders: No - Liver History Hx Hepatic Disorders: Yes Hepatic History Comment: cirossis - Neurological & Psychiatric Hx Hx Neurological and Psychiatric Disorders: No - Cancer History Hx Cancer: No - Congenital Disorder History Hx Congenital Disorders: No - GI History Hx Gastrointestinal Disorders: No - Other Health History Other Health History: bruises easily - Chronic Pain History Chronic Pain: No - Surgical History Prior Surgeries: varies banding ANE Review of Systems Review of systems is: negative Review of Systems: ANE Patient History - Allergies Allergies/Adverse Reactions: No Known Allergies Allergy (Verified 10/12/18 16:57) - Home Medications Home Medications: NK [No Known Home Meds] 10/12/18 [Last Taken Unknown] - Smoking Hx Smoking Status: Never smoked - Alcohol Use Alcohol Use: Heavy (prior heavy use, reports abstinence for ~1 month before relapsing recently) - Family Anes Hx Family Hx Anesthesia Complications: none ANE Labs/Vital Signs - Labs Result Diagrams: 10/13/18 05:35 10/13/18 05:35 - Vital Signs Blood Pressure: 144/96 Heart Rate: 85 Respiratory Rate: 20 O2 Sat (%): 97 Height: 182.88 cm Weight: 92.4 kg ANE Physical Exam - Airway Neck exam: FROM Mallampati Score: Class 2 - Pulmonary Pulmonary: no respiratory distress - Cardiovascular Cardiovascular: regular rate and rhythym - ASA Status ASA Status: III ANE Anesthesia Plan Anesthesia Plan: GA with mask
--- NOTE | 2018-10-13 09:42 | ASMTCASEMG ---
Living Arrangements What is your living Answers: Alone arrangement? Who do you live with? Type Of Residence What kind of residence do Answers: House you live in? Discharge Plan Comments Coordination Status Comments Notes: Patient is a 43yo male who was recently diagnosed with alcohol cirrhosis who is being admitted for hematemesis with anemia, acute on chronic thrombocytopenia, coagulopathy, severe hypokalemia, abdominal distention, etoh cirrhosis, etoh abuse, and portal vein thrombosis. No therapies ordered at this time. D/C plan TBD. CM will follow. Date Signed: 10/13/2018 09:41 AM Electronically Signed By:Anu Newell LCSW
[2018-10-13] MEDS ORDERED: oxyCODONE IR 5 MG TAB PO PRN (09:53)
[2018-10-13] MEDS ORDERED: NALOXONE HCL 0.4 MG/ML INJ IVP PRN (09:53)
[2018-10-13] MEDS ORDERED: ONDANSETRON 4 MG/2 ML VIAL IVP PRN (10:00)
--- NOTE | 2018-10-13 10:08 | POSTANESTH ---
Post Anesthetic Evaluation Cardiovascular Status: Normal, Stable Respiratory Status: Normal, Stable Level of Consciousness/Mental Status: Can Participate in Eval Pain Control: Adequate, Prn Tx Ordered Nausea/Vomiting Control: Adequate, Prn Tx Ordered Complications Possibly Related to Anesthesia: None Noted
[2018-10-13] MEDS ORDERED: ONDANSETRON 4 MG/2 ML VIAL ONE (10:11)
[2018-10-13] MEDS ORDERED: fentaNYL 100 MCG/2 ML INJ ONE (10:15)
[2018-10-13] MEDS: fentaNYL 100 MCG/2 ML INJ IVP PRN ×2 (10:16→10:23)
--- NOTE | 2018-10-13 10:27 | GIREPORT ---
[facility] - Endoscopy Department Patient Name: Lucas Moura Procedure Date: 10/13/2018 9:15 AM Patient Type: Inpatient Attending MD/ ER Physician: Leonard Polanco MD Procedure: Upper GI endoscopy Indications: Note dictated, consult appreciated. Hematemesis. Providers: Leonard Polanco MD, FACG Referring MD: [facility] Hospitalist service; Jason Larose MD; Blayne Arrington MD Medicines: Propofol per Anesthesia Complications: No immediate complications. Description of Procedure: After obtaining informed consent, the endoscope was passed under direct vision. Throughout the procedure, the patient's blood pressure, pulse, and oxygen saturations were monitored continuously. The Endoscope was intro duced through the mouth, and advanced to the second part of duodenum. Findings: A submucosal tear was found in the middle third of the esophagus,5 cm i n length, extending from 25 - 30 cm. No obvious perforation seen. Oozing of blood seen, but no very active bleeding. 2 + varices were again seen, near the GE junction (located at 40 cm). Nonbleeding. Mild portal hypertensive gastropathy was found in the entire examined stomach. The examined duodenum was normal. Estimated Blood Loss: Estimated blood loss: none. 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 Based on his nontoxic clinical status, suspec t it is contained and not freely perforated. Recommendation: - strict NPO - change 'biot to unasyn, to get mouth organisms - zofran prn - ativan prn - cont IV protonix - serial H/Hs, trf prn - IV thiamine - stop octreotide - for now, with him doing well clinically, will hold off on imaging (ch est CT, etc.). - recommend surgical consultation, in case his status changes, but hope fully will heal with time. I will d/w hospitalist. Thank you for allowing me to help in the management of this patient. Attending Participation: I personally performed the entire procedure. Sherri Valle MD Leonard Polanco MD 10/13/2018 10:27:26 AM This report has been signed electronicallyPeter MD Sherri Number of Addenda: 0 Note Initiated On: 10/13/2018 9:15 AM [email or web address]
--- NOTE | 2018-10-13 10:39 | GCON ---
[f rep st] CONSULTATION GASTROENTEROLOGY INPATIENT CONSULTATION DATE OF CONSULTATION: 10/13/2018 I was kindly requested to see Lucas by Dr. Willam Hernandez in consultation for a chief complaint of hematemesis. He is a 43-year-old white male with known alcoholic cirrhosis, who began drinking alcohol a few days ago. He presented to the emergency department, and was sent to rehab at [facility]. He received some Librium and then was discharged 2 days ago. Yesterday morning, he had an episode of hematemesis, bright red in nature, after eating breakfast. He was hospitalized last month for hematemesis, where he underwent an upper endoscopy by my partner, Dr. Blayne Arrington. Two columns of grade 2 esophageal varices were seen with stigmata of recent bleeding. Two bands were placed. These were done at 40 cm. He had some moderate portal hypertensive gastropathy. Biopsies for H pylori were negative. PAST MEDICAL HISTORY: 1. As above. 2. Alcohol abuse. 3. Alcoholic cirrhosis with portal hypertension. 4. Ultrasound on last admission showing portal vein thrombosis with retrograde filling. 5. Thrombocytopenia from his cirrhosis. 6. Otherwise, noncontributory. MEDICATIONS: He is not taking any outpatient medications. Inpatient medications include ceftriaxone, octreotide drip, Protonix 40 mg IV q.12 and IV fluids. ALLERGIES: No known drug allergies. SOCIAL HISTORY: As above. FAMILY HISTORY: Negative for similar hematemesis. REVIEW OF SYSTEMS: Positive pertinent review of systems as per my HPI. Otherwise, a complete review of systems is negative. PHYSICAL EXAM: CONSTITUTIONAL: Nontoxic. VITAL SIGNS: Stable. SKIN: Warm, dry. EYES: Pupils equal, round and reactive to light and accommodation. EARS , NOSE, MOUTH, AND THROAT: Oropharynx without masses, moist mucosa. CARDIOVASCULAR: Normal S2, normal PMI. RESPIRATORY: Lungs clear to auscultation and percussion anteriorly. GASTROINTESTINAL: Abdomen soft without any masses. NEUROLOGIC: Grossly nonfocal with cranial nerves grossly intact. PSYCHIATRIC: Orientation, insight appropriate. MUSCULOSKELETAL: Strength grossly normal throughout, normal station. LABORATORIES: Include initial hematocrit of 32.9%, then 29.8%, and now 28.7%. Platelet count initially of 23,000, and he received some platelets and it is presently 34,000. White count on admission 3.26 and now 1.82. Potassium 3.1. AST 95, alkaline phosphatase 152, prothrombin time 19.7 with an INR of 1.61. ASSESSMENT: Repeat hematemesis. This most likely represents a repeat variceal bleed. Bleeding from his portal hypertensive gastropathy is also possible, but less likely. He has restarted drinking alcohol, and was not taking his outpatient nadolol. PLAN: 1. Urgent upper endoscopy. Certainly, with his recurrent alcohol use, cirrhosis, portal hypertension, gastrointestinal bleeding, which may be variceal , need for propofol, etc., he is at increased risk for this procedure. However , suspected benefits outweigh the risks, suspect he would do well. 2. Vitamin K. 3. thiamine 4. Serial hematocrits. 5. IV fluids. 6. Further management depending on the above. Thank you for allowing me to help in the care of this patient. /[id number]/MODL MTDLisseth
--- NOTE | 2018-10-13 10:43 | PDMN ---
Medical Necessity Medical necessity: MCG: M180 GIB upper- A-2 days: ( fresh blood in emesis- severe liver disease- ) 43yoM recently Dg with alcohol cirrhosis with Hx of esophageal variceal bleeds presents with vomiting blood, tachycardia, anemia , hypokalemia, (2.7), abd. distention, thrombocytopenia , 1 unit plt. transfused. ECG shows borderline L axis, prolonged QTc, EGD: Boerhaave's syndrome strict NPO, anticipate > 2 MN ongoing med nec care
--- NOTE | 2018-10-13 11:17 | HOSPPROG ---
Hospitalist Progress Note Assessment/Plan: # Boerhaave syndrome - clinically stable, overall not consistent with mediastinitis - Dr Alegria will consult - will obtain CT of neck and chest - cont abx (change to unasyn), iv PPI # cirrhosis 2/2 etOH, c/b varices, thrombocytopenia, synthetic dysfunction # pancytopenia - d/t cirrhosis and etOH # etOH abuse - no evidence of withdrawal at this time Subjective: s/p EGD, Boerhaves noted; no CP Objective: Vital Signs Temp Pulse Resp BP Pulse Ox 37.5 C 85 20 144/96 H 97 10/13/18 10:31 10/13/18 09:35 10/13/18 09:35 10/13/18 09:35 10/13/18 09:35 Laboratory Results 10/13/18 05:35 10/13/18 05:35 10/12/18 10/13/18 10/14/18 05:59 05:59 05:59 Intake Total 2250 500 Output Total 0 Balance 2250 500 PT 19.7 SEC (12.0-15.0) H 10/12/18 17:13 INR 1.66 (0.83-1.16) H 10/12/18 17:13 chart reviewed discussed with Dr Polanco and Raji EGD reviewed - Physical Exam Constitutional: no apparent distress, appears nourished Cardiovascular: regular rate and rhythym, no murmur, rub, or gallop Respiratory: no respiratory distress, no rales or rhonchi, clear to auscultation Gastrointestinal: normoactive bowel sounds, soft, non-tender abdomen, no palpable masses ICD10 Worksheet Patient Problems: Problems Problem Status Onset Upper GI bleed Acute Encephalopathy acute Acute Anemia Acute Hypokalemia Acute Alcohol dependence Acute
[2018-10-13] MEDS ORDERED: IOPAMIDOL (ISOVUE-300) 100 ML BTL ONE (11:46)
[2018-10-13] MEDS: AMPICILLIN/SULBACTAM 3 GM in NS 100 ML IV SCH ×2 (12:24→17:43)
[2018-10-13] MEDS: LORazepam 2 MG/ML INJ IVP PRN ×2 (13:30→23:42)
--- NOTE | 2018-10-13 17:06 | GCON ---
[f rep st] CONSULTATION PULMONARY/CRITICAL CARE CONSULTATION DATE OF CONSULTATION: 10/13/2018 REFERRING PHYSICIAN: Edis Triana MD REASON FOR REFERRAL: Evaluation and management of Boerhaave syndrome and hematemesis. HISTORY: The patient is a 43-year-old male with a known history of alcoholism with alcoholic cirrhos is. He was at hospitalized a month ago with hematemesis, where he was found to have some esophageal varices that were banded by Dr. Arrington. He was abstinent, but then started drinking again and was s ent to the [facility] where he has received some Librium. Yesterday, he had an episode of hematemesis after eating breakfast and so was admitted to the hospital. He was hemodynamically stable and his hemoglo bin was stable, but he had low platelets, for which he was transfused. Today, he had upper endoscopy and was found to have a component of a 5 cm submucosal tear in the middle third of the esophagus wit h no obvious perforation. There is some oozing blood, but no significant active bleeding. The varic es were seen more distally. He was admitted to the ICU for close observation. He states that he has had epigastric pain, which has actually improved a bit since yesterday. He has had no further hemat emesis. PAST MEDICAL HISTORY: Alcohol abuse, alcoholic cirrhosis with portal hypertension and esophageal chasity ices, status post banding, thrombocytopenia. MEDICATIONS: At the time of admission: None. ALLERGIES: None. SOCIAL HISTORY: The patient has a history of alcohol abuse. He has never smoked. FAMILY HISTORY: Unremarkable. REVIEW OF SYSTEMS: A 10-point review of systems adds nothing to the history of present illness. PHYSICAL EXAMINATION: GENERAL: The patient is awake and alert and in no acute distress. VITAL SIGN S: Blood pressure is 129/74 with a heart rate of 80. He is afebrile. Oxygen saturations are 91% on room air. HEENT: Normocephalic and atraumatic. No icterus. NECK: No JVD. Trachea is midline. CHEST: Clear to auscultation. CARDIAC: Regular rate and rhythm without murmur. ABDOMEN: Soft, no ntender. Bowel sounds are present. EXTREMITIES: No clubbing, cyanosis, or edema. NEURO: The xavier ent is awake and alert. He has no gross motor or sensory deficits. LABORATORY/IMAGING: Hemoglobin is 9.8, down from 11.3 at admission. His platelet count is 34, up fr om 23 after transfusion. His white blood count is 1.8, down from 3.3. Chemistry group shows a potas sium of 3.1, up from 2.7, creatinine 0.5. AST is 122 with ALT of 51. LDH is elevated at 720. INR i s 1.7. Fibrinogen is 243. CT scan of the chest shows no focal infiltrates, mediastinal thickening, or air. Images were reviewe d by me. ASSESSMENT: 1. Boerhaave syndrome. The patient has a mid esophageal tear, but no signs or symptoms of mediastin itis. He is being empirically treated with Unasyn. 2. History of esophageal varices. He had an episode of hematemesis yesterday, but his hemoglobin ovalles s dropped a bit, but has been fairly stable with no further episodes of hematemesis and no active ble eding seen on the endoscopy. 3. Thrombocytopenia. This is chronic, likely related to the patient's cirrhosis. He does not have any active bleeding currently. RECOMMENDATIONS: 1. Continue Unasyn. 2. Continue n.p.o. status. 3. The patient has been seen in consultation by Dr. Goss, who recommends continued conservative man agement. 4. Follow CBC closely and transfuse as needed. /[id number]/MODL
[2018-10-14] MEDS: POTASSIUM Cl (KCl) 100 ML IV SCH ×4 (01:34→23:48)
[2018-10-14] MEDS: AMPICILLIN/SULBACTAM 3 GM in NS 100 ML IV SCH ×4 (01:34→17:08)
[2018-10-14 05:31] LABS: PLATELET COUNT 30 10^3/uL (150-400)
[2018-10-14] MEDS: THIAMINE HCL 100 MG in NS 100 ML IV SCH (07:19)
[2018-10-14] MEDS: PANTOPRAZOLE SODIUM 40 MG VIAL IVP SCH ×2 (07:20→20:14)
[2018-10-14] MEDS ORDERED: MAGNESIUM SULF 1 GM/DEXTROSE 100 ML IV ONE (07:28)
--- NOTE | 2018-10-14 09:45 | HOSPPROG ---
Hospitalist Progress Note Assessment/Plan: # Boerhaave syndrome - clinically stable, overall not consistent with mediastinitis - gen surg following, conservative management - cont unasyn, iv PPI # cirrhosis 2/2 etOH, c/b varices, thrombocytopenia, synthetic dysfunction - not c/w a variceal bleed # pancytopenia - d/t cirrhosis and etOH # etOH abuse - no evidence of withdrawal at this time Subjective: No chest pain; has mild twinges of pain in his right lower abdomen; hungry Objective: Vital Signs Temp Pulse Resp BP Pulse Ox 36.8 C 67 18 122/84 H 95 10/14/18 00:00 10/14/18 04:00 10/14/18 04:00 10/14/18 04:00 10/14/18 04:00 Laboratory Results 10/14/18 05:10 10/14/18 05:10 10/13/18 10/14/18 10/15/18 05:59 05:59 05:59 Intake Total 2250 3016 Output Total 0 Balance 2250 3016 PT 19.7 SEC (12.0-15.0) H 10/12/18 17:13 INR 1.66 (0.83-1.16) H 10/12/18 17:[address] Forrest muller Neck and chest CT reviewed - Physical Exam Constitutional: no apparent distress, appears nourished Cardiovascular: regular rate and rhythym, no murmur, rub, or gallop, systolic murmur Respiratory: no respiratory distress, no rales or rhonchi, clear to auscultation Gastrointestinal: soft, non-tender abdomen, no palpable masses ICD10 Worksheet Patient Problems: Problems Problem Status Onset Upper GI bleed Acute Encephalopathy acute Acute Anemia Acute Hypokalemia Acute Alcohol dependence Acute
--- NOTE | 2018-10-14 13:45 | SOAPPROG ---
SOAP Progress Note Assessment/Plan: Assessment: 43-YEAR-OLD MALE WITH A ESOPHAGEAL TEAR WHICH IS NOT APPEAR TO BE FULL-THICKNESS AFEBRILE/VITAL SIGNS STABLE/MINIMAL PAIN/GETTING HUNGRY CT SCAN SHOWED NO LEAK FROM HIS ESOPHAGUS HEENT NONICTERIC CHEST CLEAR COR REGULAR RHYTHM WITHOUT MURMURS ABDOMEN SOFT NONTENDER WITH POSITIVE BOWEL SOUNDS Plan: PLAN CONTINUE NPO/CLOSE OBSERVATION/CONSIDER FOLLOW-UP UPPER GI 10/14/18 13:43 Objective: Vital Signs Temp Pulse Resp BP Pulse Ox 36.3 C 58 L 16 125/87 H 98 10/14/18 12:55 10/14/18 12:55 10/14/18 12:55 10/14/18 12:55 10/14/18 12:55 Laboratory Results 10/14/18 05:10 10/14/18 05:10 10/13/18 10/14/18 10/15/18 05:59 05:59 05:59 Intake Total 2250 3016 Output Total 0 Balance 2250 3016 PT 19.7 SEC (12.0-15.0) H 10/12/18 17:13 INR 1.66 (0.83-1.16) H 10/12/18 17:13 ICD10 Worksheet Patient Problems: Problems Problem Status Onset Hypokalemia Acute Upper GI bleed Acute Alcohol dependence Acute Anemia Acute Encephalopathy acute Acute
--- NOTE | 2018-10-14 14:56 | SOAPPROG ---
SOAP Progress Note Assessment/Plan: Assessment: Plan: 10/14/18 14:53 A/P 1. Esophageal tear/contained perforation?- Clinically doing well. No c/o of upper abdominal pain, fevers etc. Esophagram tomorrow? Start diet dependent on results? GI will follow intermittently. Please call if needed. Subjective: cc: Follow up on esophageal tear/perforation. This is my first encounter with the patient. No complaints of upper abdominal pain, fever, or chills. Hungry. Objective: Vital Signs Temp Pulse Resp BP Pulse Ox 36.3 C 58 L 16 125/87 H 98 10/14/18 12:55 10/14/18 12:55 10/14/18 12:55 10/14/18 12:55 10/14/18 12:55 Laboratory Results 10/14/18 05:10 10/14/18 05:10 10/13/18 10/14/18 10/15/18 05:59 05:59 05:59 Intake Total 2250 3016 Output Total 0 Balance 2250 3016 PT 19.7 SEC (12.0-15.0) H 10/12/18 17:13 INR 1.66 (0.83-1.16) H 10/12/18 17:13 Physical Exam - Physical Exam General Appearance: alert, no apparent distress EENT: No scleral icterus (R), No scleral icterus (L) Respiratory: lungs clear, normal breath sounds, No decreased breath sounds, No crackles, No rales, No rhonchi Cardiac/Chest: regular rate, rhythm, No bradycardia, No tachycardia, No diastolic murmur, No systolic murmur Abdomen: normal bowel sounds, non-tender, soft, No distended, No guarding, No rebound Skin: normal color Extremities: normal inspection Neuro/Psych: normal mood/affect, oriented x 3, 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
[2018-10-14] MEDS: D5W 1/2 NS W/ 20 KCl/L 1,000 ML IV SCH (17:08)
[2018-10-14] MEDS: LORazepam 2 MG/ML INJ IVP PRN (20:14)
[2018-10-15] MEDS: AMPICILLIN/SULBACTAM 3 GM in NS 100 ML IV SCH ×4 (00:18→17:31)
[2018-10-15] MEDS: D5W 1/2 NS W/ 20 KCl/L 1,000 ML IV SCH (04:01)
[2018-10-15] MEDS: LORazepam 2 MG/ML INJ IVP PRN ×5 (04:09→21:48)
[2018-10-15] MEDS: THIAMINE HCL 100 MG in NS 100 ML IV SCH (09:03)
[2018-10-15] MEDS: PANTOPRAZOLE SODIUM 40 MG VIAL IVP SCH ×2 (09:04→21:48)
[2018-10-15] MEDS ORDERED: MAGNESIUM SULF 1 GM/DEXTROSE 100 ML IV ONE (10:06)
[2018-10-15] MEDS: POTASSIUM Cl (KCl) 100 ML IV SCH ×5 (13:00→23:30)
--- NOTE | 2018-10-15 13:30 | ASMTCMCOM ---
CM Note CM Note Notes: CM discussed patient case with RIANNA Gray. Patient continues NPO status & esophagram pending for tomorrow morning. CM to follow. Plan: TBD, likely home independent. Date Signed: 10/15/2018 01:29 PM Electronically Signed By:Francia Hall
--- NOTE | 2018-10-15 13:34 | HOSPPROG ---
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, c/b varices, thrombocytopenia, synthetic dysfunction - not c/w a variceal bleed # pancytopenia - d/t cirrhosis and etOH # etOH abuse - no evidence of withdrawal at this time Subjective: very frustrated with the perception that he is being lead along; i spoke with him in depth about this Objective: Vital Signs Temp Pulse Resp BP Pulse Ox 36.6 C 62 16 131/89 H 100 10/15/18 07:15 10/15/18 07:15 10/15/18 07:15 10/15/18 07:15 10/15/18 07:15 Laboratory Results 10/14/18 05:10 10/15/18 04:38 10/14/18 10/15/18 10/16/18 05:59 05:59 05:59 Intake Total 3016 420 1700 Output Total 0 Balance 3016 420 1700 PT 19.7 SEC (12.0-15.0) H 10/12/18 17:13 INR 1.66 (0.83-1.16) H 10/12/18 17:13 - Time Spent With Patient Time Spent with Patient: greater than 35 minutes Time Spent with Patient: Greater than 35 minutes spent on this patients care, greater than 50% of time spent counseling, educating, and coordinating care regarding the above mentioned plan. - Physical Exam Constitutional: uncomfortable ICD10 Worksheet Patient Problems: Problems Problem Status Onset Upper GI bleed Acute Encephalopathy acute Acute Anemia Acute Hypokalemia Acute Alcohol dependence Acute
--- NOTE | 2018-10-15 20:58 | SOAPPROG ---
SOAP Progress Note Assessment/Plan: Assessment: 43-YEAR-OLD MALE WITH A ESOPHAGEAL TEAR WHICH IS NOT APPEAR TO BE FULL-THICKNESS AFEBRILE/VITAL SIGNS STABLE/MINIMAL PAIN/GETTING HUNGRY CT SCAN SHOWED NO LEAK FROM HIS ESOPHAGUS HEENT NONICTERIC CHEST CLEAR COR REGULAR RHYTHM WITHOUT MURMURS ABDOMEN SOFT NONTENDER WITH POSITIVE BOWEL SOUNDS Plan: PLAN CONTINUE NPO/CLOSE OBSERVATION/CONSIDER FOLLOW-UP UPPER GI 10/14/18 13:43 10/15/18 20:57 COMFORTABLE/ AFEBRILE/ WANTS TO EAT ESOPHAGOGRAM IN AM Objective: Vital Signs Temp Pulse Resp BP Pulse Ox 36.6 C 54 L 16 132/91 H 99 10/15/18 16:00 10/15/18 16:00 10/15/18 16:00 10/15/18 16:00 10/15/18 16:00 Laboratory Results 10/14/18 05:10 10/15/18 18:10 10/14/18 10/15/18 10/16/18 05:59 05:59 05:59 Intake Total 3016 420 2900 Output Total 0 Balance 3016 420 2900 PT 19.7 SEC (12.0-15.0) H 10/12/18 17:13 INR 1.66 (0.83-1.16) H 10/12/18 17:13 ICD10 Worksheet Patient Problems: Problems Problem Status Onset Hypokalemia Acute Upper GI bleed Acute Alcohol dependence Acute Anemia Acute Encephalopathy acute Acute
[2018-10-15] MEDS: ZOLPIDEM TARTRATE 5 MG TAB PO PRN (23:34)
[2018-10-16] MEDS: AMPICILLIN/SULBACTAM 3 GM in NS 100 ML IV SCH ×5 (00:37→23:18)
[2018-10-16] MEDS: POTASSIUM Cl (KCl) 100 ML IV SCH ×3 (01:13→16:00)
[2018-10-16] MEDS: D5W 1/2 NS W/ 20 KCl/L 1,000 ML IV SCH ×2 (01:14→17:45)
[2018-10-16] MEDS: LORazepam 2 MG/ML INJ IVP PRN ×3 (05:32→16:30)
[2018-10-16] MEDS ORDERED: MAGNESIUM SULF 1 GM/DEXTROSE 100 ML IV ONE (07:33)
[2018-10-16] MEDS: PANTOPRAZOLE SODIUM 40 MG VIAL IVP SCH ×2 (08:01→21:16)
--- NOTE | 2018-10-16 08:52 | SOAPPROG ---
SOAP Progress Note Assessment/Plan: Assessment: 43 y/o M with hx of etoh abuse, admitted for esophageal tear H&H stable. VSS Plan for esophagram this am. Hopefully advance diet to clears afterward. S: Denies pain. Has appetite. O:Alert Afebrile RRR No increased WOB Abdomen soft, nontender. 10/16/18 08:49 Objective: Vital Signs Temp Pulse Resp BP Pulse Ox 36.3 C 56 L 16 120/84 H 97 10/16/18 08:10 10/16/18 08:10 10/16/18 08:10 10/16/18 08:10 10/16/18 08:10 Laboratory Results 10/14/18 05:10 10/16/18 05:23 10/15/18 10/16/18 10/17/18 05:59 05:59 05:59 Intake Total 420 2900 Balance 420 2900 PT 19.7 SEC (12.0-15.0) H 10/12/18 17:13 INR 1.66 (0.83-1.16) H 10/12/18 17:13 ICD10 Worksheet Patient Problems: Problems Problem Status Onset Hypokalemia Acute Upper GI bleed Acute Alcohol dependence Acute Anemia Acute Encephalopathy acute Acute
[2018-10-16] MEDS: THIAMINE HCL 100 MG in NS 100 ML IV SCH (10:24)
--- NOTE | 2018-10-16 14:10 | HOSPPROG ---
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, c/b varices, thrombocytopenia, synthetic dysfunction - not c/w a variceal bleed # pancytopenia - d/t cirrhosis and etOH # etOH abuse - no evidence of withdrawal at this time Subjective: no CP or abd pain; still hungry Objective: Vital Signs Temp Pulse Resp BP Pulse Ox 36.3 C 56 L 16 120/84 H 97 10/16/18 08:10 10/16/18 08:10 10/16/18 08:10 10/16/18 08:10 10/16/18 08:10 Laboratory Results 10/14/18 05:10 10/16/18 05:23 10/15/18 10/16/18 10/17/18 05:59 05:59 05:59 Intake Total 420 2900 Balance 420 2900 PT 19.7 SEC (12.0-15.0) H 10/12/18 17:13 INR 1.66 (0.83-1.16) H 10/12/18 17:[address] Sharma esophagram reviewed - Physical Exam Constitutional: no apparent distress, appears nourished Eyes: anicteric sclera Ears, Nose, Mouth, Throat: hearing normal Cardiovascular: No edema Respiratory: no respiratory distress Gastrointestinal: soft, non-tender abdomen Skin: warm Musculoskeletal: full muscle strength Neurologic: AAOx3 Psychiatric: not anxious ICD10 Worksheet Patient Problems: Problems Problem Status Onset Upper GI bleed Acute Encephalopathy acute Acute Anemia Acute Hypokalemia Acute Alcohol dependence Acute
[2018-10-16] MEDS ORDERED: POTASSIUM Cl (KCl) 100 ML IV SCH (15:00)
[2018-10-16] MEDS ORDERED: POTASSIUM CL 20 MEQ TAB PO ONE (21:44)
[2018-10-16] MEDS: ZOLPIDEM TARTRATE 5 MG TAB PO PRN (22:04)
[2018-10-16] MEDS: LORazepam 1 MG TAB PO PRN (22:04)
[2018-10-16] MEDS: oxyCODONE IR 5 MG TAB PO PRN (22:04)
[2018-10-17] MEDS: oxyCODONE IR 5 MG TAB PO PRN ×5 (02:09→21:44)
[2018-10-17] MEDS: LORazepam 1 MG TAB PO PRN ×5 (02:09→21:44)
[2018-10-17] MEDS: AMPICILLIN/SULBACTAM 3 GM in NS 100 ML IV SCH ×4 (05:12→23:20)
[2018-10-17 05:49] LABS: PLATELET COUNT 35 10^3/uL (150-400)
--- NOTE | 2018-10-17 08:21 | SOAPPROG ---
SOAP Progress Note Assessment/Plan: Assessment/Plan: 43 Y M EtOH abuse, cirrhosis, pancytopenia, here with esophageal tear 2/2 Boerhaave syndrome. Advancing to full liquid diet this am. Recommend full liquid / pureed diet for the next week. Plan for outpatient next week f/u and consideration of advancing diet then. Ok with d/c'ing unasyn. Ok with transitioning to oral PPI. Defer to medicine regarding readiness for d/c. No CI to indication per surgery team. S: frustrated. apologetic for being rude but wants to "get on with his life." wants to go home. denies fevers, chills, pain. "hungry." O: alert, nad, nontoxic appearing no scleral icterus ctab rrr abd soft 10/17/18 08:17 Objective: Vital Signs Temp Pulse Resp BP Pulse Ox 36.5 C 61 16 137/100 H 99 10/17/18 07:26 10/17/18 07:26 10/17/18 07:26 10/17/18 07:26 10/17/18 07:26 Laboratory Results 10/17/18 05:00 10/17/18 05:00 10/16/18 10/17/18 10/18/18 05:59 05:59 05:59 Intake Total 2900 3900 Balance 2900 3900 PT 19.7 SEC (12.0-15.0) H 10/12/18 17:13 INR 1.66 (0.83-1.16) H 10/12/18 17:13 ICD10 Worksheet Patient Problems: Problems Problem Status Onset Hypokalemia Acute Upper GI bleed Acute Alcohol dependence Acute Anemia Acute Encephalopathy acute Acute
[2018-10-17] MEDS: PANTOPRAZOLE SODIUM 40 MG VIAL IVP SCH (08:31)
[2018-10-17] MEDS: THIAMINE HCL 100 MG in NS 100 ML IV SCH (08:34)
[2018-10-17] MEDS ORDERED: MAGNESIUM SULF 1 GM/DEXTROSE 100 ML IV ONE (09:40)
--- NOTE | 2018-10-17 12:58 | HOSPPROG ---
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, c/b varices, thrombocytopenia, synthetic dysfunction - not c/w a variceal bleed pancytopenia - d/t cirrhosis and etOH etOH abuse - no evidence of withdrawal at this time dispo: inpt Subjective: case d/w ginny pastor, surgery PA Objective: Vital Signs Temp Pulse Resp BP Pulse Ox 36.5 C 61 16 137/100 H 99 10/17/18 07:26 10/17/18 07:26 10/17/18 07:26 10/17/18 07:26 10/17/18 07:26 Laboratory Results 10/17/18 05:00 10/17/18 05:00 10/16/18 10/17/18 10/18/18 05:59 05:59 05:59 Intake Total 2900 3900 Balance 2900 3900 PT 19.7 SEC (12.0-15.0) H 10/12/18 17:13 INR 1.66 (0.83-1.16) H 10/12/18 17:13 - Physical Exam Constitutional: no apparent distress, appears nourished Eyes: PERRL, anicteric sclera Ears, Nose, Mouth, Throat: moist mucous membranes, hearing normal Cardiovascular: regular rate and rhythym, no murmur, rub, or gallop Respiratory: no respiratory distress, no rales or rhonchi Gastrointestinal: normoactive bowel sounds, soft, non-tender abdomen Genitourinary: No jackson in urethra Skin: warm Musculoskeletal: full muscle strength Neurologic: AAOx3 ICD10 Worksheet Patient Problems: Problems Problem Status Onset Hypokalemia Acute Upper GI bleed Acute Alcohol dependence Acute Anemia Acute Encephalopathy acute Acute
--- NOTE | 2018-10-17 13:31 | ASMTCMCOM ---
CM Note CM Note Notes: CM spoke with pt in the room. Provided pt with contact information for [facility] financial counseling as pt is concerned he will be unable to pay his deductible. Financial counseling also updated with pt's concern. Pt states he has an abundance of alcohol recovery resources and does not need further info from CM. Pt states he has been sober since last admission. Pt to discharge independently, likely tomorrow if he is able to tolerate food. CM to follow. D/C Plan: Independent Date Signed: 10/17/2018 01:31 PM Electronically Signed By:Orquidea Santana
[2018-10-17] MEDS: PANTOPRAZOLE SODIUM 40 MG TAB PO SCH (20:31)
[2018-10-17] MEDS: ZOLPIDEM TARTRATE 5 MG TAB PO PRN (21:44)
[2018-10-17] MEDS ORDERED: POTASSIUM CL 10 MEQ TAB PO ONE (23:09)
[2018-10-18] MEDS: LORazepam 1 MG TAB PO PRN (03:24)
[2018-10-18] MEDS: oxyCODONE IR 5 MG TAB PO PRN (03:24)
[2018-10-18] MEDS: AMPICILLIN/SULBACTAM 3 GM in NS 100 ML IV SCH (05:14)
[2018-10-18] MEDS ORDERED: MAGNESIUM SULF 1 GM/DEXTROSE 100 ML IV ONE (07:42)
[2018-10-18 07:48] VITALS: BP 130/74
--- NOTE | 2018-10-18 08:26 | HOSPPROG ---
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, c/b varices, thrombocytopenia, synthetic dysfunction - not c/w a variceal bleed pancytopenia - d/t cirrhosis and etOH etOH abuse - no evidence of withdrawal at this time dispo: hometoday > 30 minutes Subjective: afebrile Objective: Vital Signs Temp Pulse Resp BP Pulse Ox 36.5 C 64 16 130/74 H 95 10/18/18 07:45 10/18/18 07:45 10/18/18 07:45 10/18/18 07:45 10/18/18 07:45 Laboratory Results 10/17/18 05:00 10/18/18 05:10 10/17/18 10/18/18 10/19/18 05:59 05:59 05:59 Intake Total 3900 2100 Balance 3900 2100 PT 19.7 SEC (12.0-15.0) H 10/12/18 17:13 INR 1.66 (0.83-1.16) H 10/12/18 17:13 - Physical Exam Constitutional: no apparent distress, appears nourished Eyes: PERRL, EOMI Ears, Nose, Mouth, Throat: moist mucous membranes, hearing normal Cardiovascular: regular rate and rhythym, no murmur, rub, or gallop Respiratory: no respiratory distress, no rales or rhonchi Gastrointestinal: normoactive bowel sounds, soft, non-tender abdomen Genitourinary: no bladder fullness, No jackson in urethra Skin: normal color Musculoskeletal: full muscle strength Neurologic: AAOx3 ICD10 Worksheet Patient Problems: Problems Problem Status Onset Hypokalemia Acute Upper GI bleed Acute Alcohol dependence Acute Anemia Acute Encephalopathy acute Acute
[2018-10-18] MEDS: PANTOPRAZOLE SODIUM 40 MG TAB PO SCH (09:15)
--- NOTE | 2018-10-18 09:37 | SOAPPROG ---
SOAP Progress Note Assessment/Plan: Assessment/Plan: 43 Y M EtOH abuse, cirrhosis, pancytopenia, here with esophageal tear 2/2 Boerhaave syndrome. Doing well with full liquid/wired jaw diet. Off abx. No fevers or pain overnight. Seen with medicine. Dc to home today of full liquid diet with outpatient f/u next week. Discussed s/ s of infection--ie fevers, pain--and need for urgent f/u if these occur. S: denies fevers, chills, pain. happy to go home. O: alert, nad, nontoxic appearing no scleral icterus ctab rrr abd soft 10/18/18 09:36 Objective: Vital Signs Temp Pulse Resp BP Pulse Ox 36.5 C 64 16 130/74 H 95 10/18/18 07:45 10/18/18 07:45 10/18/18 07:45 10/18/18 07:45 10/18/18 07:45 Laboratory Results 10/17/18 05:00 10/18/18 05:10 10/17/18 10/18/18 10/19/18 05:59 05:59 05:59 Intake Total 3900 2100 Balance 3900 2100 PT 19.7 SEC (12.0-15.0) H 10/12/18 17:13 INR 1.66 (0.83-1.16) H 10/12/18 17:13 ICD10 Worksheet Patient Problems: Problems Problem Status Onset Alcohol dependence Acute Anemia Acute Encephalopathy acute Acute Hypokalemia Acute Upper GI bleed Acute
--- NOTE | 2018-10-18 11:23 | GDS ---
[f rep st] DISCHARGE SUMMARY DISCHARGE DIAGNOSES: 1. Hematemesis with Boerhaave syndrome. 2. History of cirrhosis with history of varicocele bleed. Please see admission history and physical by Dr. Coy Hernandez. The patient presented with hematemesi s. He underwent endoscopy the next day, showing varices without evidence of bleeding, but a 5 cm sub mucosal tear without obvious perforation. Subsequent chest and neck CT failed to show air outside th e esophagus. He was seen by Pulmonary Critical Care as well as General Surgery. He was managed n.p. o. On the , he had an esophagram showing no evidence of perforation. His diet was advanced overn ight, and he was afebrile without respiratory symptoms. He is therefore discharged home. He has follow up with general surgery with Dr. Sharma. He is prescribed b.i.d. PPI. /[id number]/MODL
--- NOTE | 2018-10-23 12:18 | GCON ---
[f rep st] CONSULTATION DATE OF CONSULTATION: 10/14/2018 HISTORY OF PRESENT ILLNESS: Patient is a 43-year-old male who had an esophageal tear as a result of vomiting after a drinking episode. It, however, did not appear to be a full-thickness tear. He pres ented with a GI bleed. The endoscopy did not demonstrate a leak. The CT scan not demonstrated any d efinite leak from his esophagus. He is difficult to assess this morning as he is very sleepy and onl y partially cooperative, but he does drink heavily. PAST MEDICAL HISTORY: Includes a history of cirrhosis, portal hypertension, and esophageal varices. He has had variceal banding. He also has thrombocytopenia. MEDICATIONS: None. ALLERGIES: None that he admits to. SOCIAL HISTORY: Reveals he drinks heavily. Does not smoke. FAMILY HISTORY: Noncontributory. REVIEW OF SYSTEMS: Difficult to obtain, but is noncontributory on a full 10-point review, except as related to the HPI. PHYSICAL EXAMINATION: GENERAL: An alert, but sleepy 43-year-old male in no acute distress, afebrile . HEAD/NECK: Revealed no icterus or adenopathy or oral lesions. CHEST: Clear. CARDIAC: Regular rhythm. ABDOMEN: Soft without masses or tenderness. He has no organomegaly. GENITALIA: Normal. EXTREMITIES: Reveal full range of motion, full pulses. No clubbing. NEUROLOGIC: Reveals him to be symmetric and physiologic, but sleepy. IMPRESSION: Partial Boerhaave esophageal tear without perforation. PLAN: Close observation and continue n.p.o. He will eventually need an esophagram to rule out any l eakage. At the present time, he has had no further bleeding or vital sign instability. /[id number]/MODL
--- NOTE | 2018-10-23 13:37 | PQFORM ---
PHYSICIAN QUERY FORM Needs Your Response This query form is being sent to you to assure this patient record is coded properly. Please respond to the question below: YARD SUPERVISOR QUESTION: Dear Dr. Chavez, Pancytopenia was documented within the Hospitalist Progress notes dated 10/13-, and SOAP note's dated 10/17-10/18. Clinical Indicators; Vomiting blood, tachycardia, anemia, acute on chronic thrombocytopenia. Labs; 10/12=WBC 3.26, RBC 3.76, Platelets 23; 10/13=WBC 1.82, RBC 3.25, Platelets 34; 10/14=WBC 2.11, RBC 3.48, Platelets 30; 10/17=WBC 1.33, RBC 3.59, Platelets 35. After study, should the diagnosis of 'Pancytopenia' be included in the Discharge Summary? ___X__Yes No Other clinical findings (Please specify) Clinically unable to determine Thank you Orquidea Negrete, EFFIE HIM/Coding Dept. INSTRUCTIONS FOR RESPONSE: Answer question by clicking on the "Edit Document" button. Move cursor to area below the stars. When complete, hit "Save." Click on the "Sign" button, then click "Sign" again. Type in your PIN and hit "Enter." MTDD
== END 2018-10-18 09:35 | disposition home or self-care (01) | DRG 369 ==
LOC: EEVIPCON 16:04 → F2N 18:26 → F3E 10-14 12:47
PROVIDERS: ADMIT Internal Medicine; ATTEND Internal Medicine
PROC: 30233R1 Transfusion of Nonautologous Platelets into Peripheral Vein, Percutaneous Approach (ICD-10-PCS; 2018-10-12)
PROC: 0DJ08ZZ Inspection of Upper Intestinal Tract, Via Natural or Artificial Opening Endoscopic (ICD-10-PCS; principal; 2018-10-13 09:30)
DX: K22.3 Perforation of esophagus (principal); D61.818 Other pancytopenia; K76.6 Portal hypertension; K31.89 Other diseases of stomach and duodenum; I86.4 Gastric varices; D69.59 Other secondary thrombocytopenia; E86.9 Volume depletion, unspecified; I10 Essential (primary) hypertension; K70.30 Alcoholic cirrhosis of liver without ascites; F10.10 Alcohol abuse, uncomplicated; E87.6 Hypokalemia
CPT/HCPCS: 82435-PO; 82565-PO; 82947-PO; 84132-PO; 84295-PO; 84520-PO; 85014-ER; 96374; J0295; J0696; J2060; J2250; J2270; J2354; J2405; J2704; J3010; J3411; J3430; J3475; J3480; P9073; Q9967

== ENCOUNTER 2018-11-27 16:02 | Inpatient (IN) | payer MEDICAID ==
[2018-11-27] MEDS ORDERED: NS 1,000 ML IV ONE (16:07)
--- NOTE | 2018-11-27 16:10 | EDPHY ---
H & P Time Seen by Provider: 11/27/18 16:08 HPI/ROS: HPI CHIEF COMPLAINT: Alcohol intoxication HISTORY OF PRESENT ILLNESS: This patient is a 43-year-old male, drinks alcohol daily, presents emergency room by EMS from his private residence for acute alcohol intoxication. Apparently his family members became concerned about him is that could not get a hold of them and called a welfare check. He arrives to the emergency room highly intoxicated with alcohol. No evidence withdrawal. Plan will be for IV fluids gentle hydration, check basic labs electrolytes alcohol level. I did offer him to go to detox today however at this time is declining. Past Medical History: Hypertension and alcoholism daily alcohol use. Past Surgical History: Denies any recent surgery Social History: Alcoholism daily alcohol use. Family History: Noncontributory ROS REVIEW OF SYSTEMS: 10 Systems were reviewed and negative with the exception of the elements mentioned in the history of present illness. Exam Constitutional intoxicated, smells of alcohol, triage nursing summary reviewed , vital signs reviewed, awake/alert. Eyes normal conjunctivae and sclera, EOMI, PERRLA. HENT normal inspection, atraumatic, moist mucus membranes, no epistaxis, neck supple/ no meningismus, no raccoon eyes. Respiratory clear to auscultation bilaterally, normal breath sounds, no respiratory distress, no wheezing. Cardiovascular rate normal, regular rhythm, no murmur, no edema, distal pulses normal. Gastrointestinal soft, non-tender, no rebound, no guarding, normal bowel sounds, no distension, no pulsatile mass. Genitourinary no CVA tenderness. Musculoskeletal no midline vertebral tenderness, full range of motion, no calf swelling, no tenderness of extremities, no meningismus, good pulses, neurovascularly intact. Skin pink, warm, & dry, no rash, skin atraumatic. Neurologic awake, alert and oriented x 3, AAOx3, moves all 4 extremities equally, motor intact, sensory intact, CN II-XII intact, normal cerebellar, normal vision, normal speech. Psychiatric normal mood/affect. Heme/Lymph/Immune no lymphadenopathy. Differential Diagnosis: Includes but is not limited to in a particular order acute alcohol intoxication, electrolyte disturbance, dehydration Medical Decision Making: Plan for this patient IV establishment, IV fluid bolus , basic labs, alcohol level. Monitor for worsening of condition, monitor for sobriety. Re-evaluation: Patient be admitted to the hospital for acute alcohol intoxication [place] [address]. Plan for transfusion of platelets. Patient's alcohol level still pending I spoke with the hospitalist service Dr. Sanches who agrees to admit. Alcohol level 417. 1730. Patient consents for platelet transfusion. Source: Patient, EMS - Medical/Surgical History Hx Asthma: No Hx Chronic Respiratory Disease: No Hx Diabetes: No Hx Cardiac Disease: No Hx Renal Disease: No Hx Cirrhosis: Yes Hx Alcoholism: Yes Hx HIV/AIDS: No Hx Splenectomy or Spleen Trauma: No Other PMH: alcoholism, withdrawls, appendectomy, tonsilectomy, - Social History Smoking Status: Never smoked Constitutional: Initial Vital Signs Temperature (C) 37 C 11/27/18 16:09 Heart Rate 102 H 11/27/18 16:09 Respiratory Rate 18 11/27/18 16:09 Blood Pressure 157/118 H 11/27/18 16:09 O2 Sat (%) 92 11/27/18 16:09 O2 Delivery Mode Room Air Allergies/Adverse Reactions: No Known Allergies Allergy (Verified 10/12/18 16:57) Home Medications: Medication Instructions Recorded Pantoprazole Sodium [Protonix 40mg 40 mg PO BID #60 tab 10/18/18 (*)] Medical Decision Making - Data Points Laboratory Results: Laboratory Results 11/27/18 16:15 11/27/18 16:15 Medications Given: Acetaminophen (Tylenol) 650 mg PO Q4HRS PRN PRN Reason: Pain, Mild/Fever, Can Take PO Stop: 05/26/19 17:42 Last Admin: 11/28/18 05:33 Dose: 650 mg Folic Acid (Folic Acid) 1 mg PO DAILY FRANSISCO Stop: 05/27/19 08:59 Last Admin: 11/29/18 08:33 Dose: 1 mg Sodium Chloride (Ns) 1,000 mls @ 150 mls/hr IV CONT FRANSISCO Stop: 05/26/19 17:44 Last Admin: 11/29/18 05:05 Dose: 1,000 mls Lorazepam (Ativan Injection) 0 mg IVP Q1H PRN; Protocol PRN Reason: Alcohol Withdrawal w/IV access Stop: 05/26/19 17:49 Last Admin: 11/29/18 20:01 Dose: 2 mg Multivitamins (Tab-A-Jermaine) 1 each PO DAILY FRANSISCO Stop: 05/27/19 08:59 Last Admin: 11/29/18 08:33 Dose: 1 each Ondansetron HCl (Zofran) 4 mg IVP Q4HRS PRN PRN Reason: Nausea/Vomiting, Can't Take PO Stop: 05/26/19 17:42 Last Admin: 11/29/18 05:05 Dose: 4 mg Discontinued Medications Fentanyl (Sublimaze) 0 mcg IVP ONCALL PRN PRN Reason: Per provider during procedure Stop: 11/29/18 11:18 Last Admin: 11/29/18 11:00 Dose: 100 mcg Sodium Chloride (Ns) 1,000 mls @ 0 mls/hr IV EDNOW ONE; Wide Open PRN Reason: Protocol Stop: 11/27/18 16:08 Last Admin: 11/27/18 16:19 Dose: 1,000 mls Magnesium Sulfate (Magnesium Sulf 2 Gm (Premix)) 50 mls @ 50 mls/hr IV EDNOW ONE Stop: 11/27/18 18:26 Last Admin: 11/27/18 17:54 Dose: 50 mls Thiamine HCl 500 mg/ Sodium (Chloride) 105 mls @ 210 mls/hr IV DAILY FRANSISCO Stop: 11/29/18 09:29 Last Admin: 11/29/18 08:34 Dose: 105 mls Potassium Chloride (Potassium Cl 10 Meq (Premix)) 100 mls @ 100 mls/hr IV Q1H FRANSISCO Stop: 11/27/18 22:29 Last Admin: 11/27/18 22:21 Dose: 100 mls Calcium Gluconate (Calcium Gluconate 1 Gm (Premix)) 50 mls @ 100 mls/hr IV ONCE ONE Stop: 11/28/18 01:01 Last Admin: 11/28/18 00:55 Dose: 50 mls Calcium Gluconate (Calcium Gluconate 1 Gm (Premix)) 50 mls @ 100 mls/hr IV ONCE ONE Stop: 11/28/18 09:01 Last Admin: 11/28/18 10:49 Dose: 50 mls Magnesium Sulfate/Dextrose (Magnesium Sulf 1 Gm (Premix)) 100 mls @ 100 mls/hr IV ONCE ONE Stop: 11/28/18 09:31 Last Admin: 11/28/18 09:34 Dose: 100 mls Magnesium Sulfate (Magnesium Sulf 2 Gm (Premix)) 50 mls @ 50 mls/hr IV ONCE ONE Stop: 11/29/18 08:48 Last Admin: 11/29/18 08:39 Dose: 50 mls Calcium Gluconate (Calcium Gluconate 1 Gm (Premix)) 50 mls @ 100 mls/hr IV ONCE ONE Stop: 11/29/18 08:20 Last Admin: 11/29/18 08:39 Dose: 50 mls Midazolam HCl (Versed) 0 mg IVP ONCALL PRN PRN Reason: Per provider during procedure Stop: 11/29/18 11:18 Last Admin: 11/29/18 11:00 Dose: 2 mg Potassium Chloride (Klor-Con) 40 meq PO ONCE ONE PRN Reason: Protocol Stop: 11/27/18 20:15 Last Admin: 11/27/18 20:31 Dose: 40 meq Potassium Chloride (Klor-Con) 10 - 40 meq PO ONCE ONE PRN Reason: Protocol Stop: 11/28/18 08:32 Last Admin: 11/28/18 09:46 Dose: 40 meq Potassium Chloride (Klor-Con) 40 meq PO ONCE ONE Stop: 11/28/18 22:33 Last Admin: 11/28/18 22:57 Dose: 40 meq Potassium Chloride (Klor-Con) 30 meq PO ONCE ONE PRN Reason: Protocol Stop: 11/29/18 07:49 Last Admin: 11/29/18 08:34 Dose: 30 meq Departure - Departure Disposition: [facility] Inpatient Acute Clinical Impression: Thrombocytopenia Alcohol intoxication Qualifiers: Complication of substance-induced condition: uncomplicated Qualified Code(s): F10.920 - Alcohol use, unspecified with intoxication, uncomplicated Condition: Fair
[2018-11-27 16:40] LABS: PLATELET COUNT 12 10^3/uL (150-400)
[2018-11-27 17:09] LABS: INR 1.38 (0.83-1.16); PROTIME(PATIENT) 16.4 SEC (12.0-15.0)
[2018-11-27] MEDS ORDERED: MAGNESIUM SULF 2 GM/WATER 50 ML IV ONE (17:27)
[2018-11-27] MEDS ORDERED: ONDANSETRON DISINTEGRATING 4 MG TAB PO PRN (17:43)
[2018-11-27] MEDS ORDERED: ACETAMINOPHEN 325 MG TAB PO PRN (17:43)
[2018-11-27] MEDS ORDERED: HYDROmorphONE/DILAUDID 1 MG/ML INJ IVP PRN (17:43)
[2018-11-27] MEDS ORDERED: oxyCODONE IR 5 MG TAB PO PRN (17:43)
[2018-11-27] MEDS ORDERED: HYDROCODONE/APAP 5/325 TAB PO PRN (17:43)
[2018-11-27] MEDS ORDERED: PROMETHAZINE HCL 25 MG/ML INJ IVP PRN (17:43)
[2018-11-27] MEDS ORDERED: MAG HYDROX/AL HYDROX/SIMETH 30 ML UDCUP PO PRN (17:50)
[2018-11-27] MEDS ORDERED: FLUMAZENIL 0.5 MG/5 ML MDV IVP PRN (17:50)
[2018-11-27] MEDS ORDERED: PROTOCOL MAGNESIUM 1 DOSE IV PRN (17:50)
[2018-11-27] MEDS ORDERED: PROTOCOL K PHOSPHATE 1 DOSE IV PRN (17:50)
[2018-11-27] MEDS ORDERED: PROTOCOL POTASSIUM 1 DOSE MISC PRN (17:50)
[2018-11-27] MEDS ORDERED: PROTOCOL CALCIUM 1 DOSE IV PRN (17:50)
--- NOTE | 2018-11-27 17:57 | PDGENHP ---
History and Physical - Chief Complaint my head feels nauseous - History of Present Illness 43 yo M with hx of alcoholic cirrhosis with known varices, portal htn, PVT as well as chronic thrombocytopenia thought to be due to his cirrhosis and etoh abuse presenting intoxicated and feeling very ill and wanting to quit drinking. He was here recently for similar issues, discharged on 11/06. He notes that since then he has been drinking again, but less than prior--previously he was drinking 'a handle' of vodka per day (1.75L) but has cut down since then to 1-2 pints per day. He has had severe withdrawal in the past requiring ICU stay, of note, his BAL in ER was 417 and patient was very coherent and not obviously intoxicated. He states he has been in treatment for alcohol many times, but when questioned further he states he has gone through detox around 10 times, but never done treatment after that. He states his drinking really became an issue 2 years ago, first when his father and then intensified further when his left him. He states he has lost control of his life and is tearful when speaking to him. He states he has had follow up for his platelets since discharge from the hospital, but it is unclear where or with who--in review of [facility] records, there are reports of trying to call him to have him f/u and notes that he did not answer the phone. 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 Has sister and brother-in- law in [place]. , states he was very wealthy Review of Systems Review of Systems: ROS: 10pt was reviewed & negative except for what was stated in HPI & below Physical Exam Physical Exam: Temp Pulse Resp BP Pulse Ox 37 C 102 H 18 157/118 H 92 11/27/18 16:09 11/27/18 16:09 11/27/18 16:09 11/27/18 16:09 11/27/18 16:09 Constitutional: chronically ill appearing, obese, unkempt Eyes: PERRL, anicteric sclera Ears, Nose, Mouth, Throat: dry mucous membranes Cardiovascular: no murmur, rub, or gallop, tachycardia Respiratory: no respiratory distress, no rales or rhonchi, clear to auscultation Gastrointestinal: normoactive bowel sounds, soft, non-tender abdomen Genitourinary: no bladder tenderness Skin: warm, normal color Musculoskeletal: full muscle strength Neurologic: AAOx3 Psychiatric: interacting appropriately, not anxious, not encephalopathic Lab Data & Imaging Review 11/27/18 16:15 11/27/18 16:15 WBC 2.35 10^3/uL (3.80-9.50) L 11/27/18 16:15 RBC 4.43 10^6/uL (4.40-6.38) 11/27/18 16:15 Hgb 13.5 g/dL (13.7-17.5) L 11/27/18 16:15 Hct 39.7 % (40.0-51.0) L 11/27/18 16:15 MCV 89.6 fL (81.5-99.8) 11/27/18 16:15 MCH 30.5 pg (27.9-34.1) 11/27/18 16:15 MCHC 34.0 g/dL (32.4-36.7) 11/27/18 16:15 RDW 17.8 % (11.5-15.2) H 11/27/18 16:15 Plt Count 12 10^3/uL (150-400) L* 11/27/18 16:15 MPV TNP 11/27/18 16:15 Neut % (Auto) 46.9 % (39.3-74.2) 11/27/18 16:15 Lymph % (Auto) 43.4 % (15.0-45.0) 11/27/18 16:15 [place] % (Auto) 6.8 % (4.5-13.0) 11/27/18 16:15 Eos % (Auto) 0.4 % (0.6-7.6) L 11/27/18 16:15 Baso % (Auto) 0.4 % (0.3-1.7) 11/27/18 16:15 Nucleat RBC Rel Count 0.9 % (0.0-0.2) H 11/27/18 16:15 Absolute Neuts (auto) 1.10 10^3/uL (1.70-6.50) L 11/27/18 16:15 Absolute Lymphs (auto) 1.02 10^3/uL (1.00-3.00) 11/27/18 16:15 Absolute Monos (auto) 0.16 10^3/uL (0.30-0.80) L 11/27/18 16:15 Absolute Eos (auto) 0.01 10^3/uL (0.03-0.40) L 11/27/18 16:15 Absolute Basos (auto) 0.01 10^3/uL (0.02-0.10) L 11/27/18 16:15 Absolute Nucleated RBC 0.02 10^3/uL (0-0.01) H 11/27/18 16:15 Immature Gran % 2.1 % (0.0-1.1) H 11/27/18 16:15 Immature Gran # 0.05 10^3/uL (0.00-0.10) 11/27/18 16:15 Platelet Estimate DECREASED (ADEQ) L 11/27/18 16:15 PT 16.4 SEC (12.0-15.0) H 11/27/18 16:22 INR 1.38 (0.83-1.16) H 11/27/18 16:22 APTT 34.3 SEC (23.0-38.0) 11/27/18 16:22 Sodium 139 mEq/L (135-145) 11/27/18 16:15 Potassium 3.7 mEq/L (3.5-5.2) 11/27/18 16:15 Chloride 107 mEq/L (97-110) 11/27/18 16:15 Carbon Dioxide 17 mEq/l (22-31) L 11/27/18 16:15 Anion Gap 15 mEq/L (6-14) H 11/27/18 16:15 BUN 2 mg/dL (7-23) L 11/27/18 16:15 Creatinine 0.7 mg/dL (0.7-1.3) 11/27/18 16:15 Estimated GFR > 60 11/27/18 16:15 Glucose 129 mg/dL (70-100) H 11/27/18 16:15 Calcium 8.0 mg/dL (8.5-10.4) L 11/27/18 16:15 Magnesium 1.4 mg/dL (1.6-2.3) L 11/27/18 16:15 Total Bilirubin 2.6 mg/dL (0.1-1.4) H 11/27/18 16:15 Conjugated Bilirubin 1.2 mg/dL (0.0-0.5) H 11/27/18 16:15 Unconjugated Bilirubin 1.4 mg/dL (0.0-1.1) H 11/27/18 16:15 AST 271 IU/L (17-59) H 11/27/18 16:15 ALT 67 IU/L (21-72) 11/27/18 16:15 Alkaline Phosphatase 141 IU/L (38-126) H 11/27/18 16:15 Total Protein 9.6 g/dL (6.3-8.2) H 11/27/18 16:15 Albumin 4.1 g/dL (3.5-5.0) 11/27/18 16:15 Specimen Hemolysis 144 11/27/18 16:15 Ethyl Alcohol 417 mg/dL (0-10) H* 11/27/18 16:15 Patient ABO/Rh B POSITIVE 11/27/18 16:50 Antibody Screen NEGATIVE 11/27/18 16:50 Platelet Orders Status READY 11/27/18 16:50 Assessment & Plan Assessment: Alcohol intoxication (Acute) Thrombocytopenia (Acute) 43 yo M with PMH of alcoholic cirrhosis with complications that include varices with bleed, PVT, chronic thrombocytopenia presenting with critical thrombocytopenia and alcohol intoxication with hopes to quit drinking # critical thrombocytopenia: platelets of 12, recent hospitalization with same issues that responded to plt transfusion somewhat, patient was to f/u with hematology but did not do so it appears. Have requested heme/onc consultation for the morning for further evaluation. He has no e/o bleeding, given headache recommended head CT, however patient declined. Will monitor post transfusion. # alcohol use disorder, severe, with current intoxication, high risk for severe withdrawal: started on CIWA protocol, with last two admissions he had seizure prior to presentation, BAL > 400 on arrival but no e/o withdrawal yet and patient states he has cut down on drinking. Would strongly recommend he transition to IP rehab after dc. 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 No e/o significant ascites, or HE. If quits drinking should establish care with GI. # alcoholic hepatitis: with DF of 15, underlying cirrhosis # pancytopenia: with low wbc and mild anemia, severe thrombocytopenia as above, presumably due to etoh abuse/chronic liver disease # IP status Patient new to my care. Old records reviewed and summarized as above. Care plan reviewed with ER doctor, Oncology consult requested for am.
[2018-11-27] MEDS: LORazepam 2 MG/ML INJ IVP PRN ×2 (18:10→19:57)
[2018-11-27] MEDS: THIAMINE HCL 500 MG in NS 100 ML IV SCH (19:58)
[2018-11-27] MEDS ORDERED: POTASSIUM CL 10 MEQ TAB PO ONE (20:14)
[2018-11-27] MEDS: POTASSIUM Cl (KCl) 100 ML IV SCH ×2 (20:31→22:21)
[2018-11-27] MEDS: NS 1,000 ML IV SCH (20:32)
[2018-11-28] MEDS ORDERED: CALCIUM GLUCONATE 50 ML IV ONE ×2 (00:32→08:32)
[2018-11-28] MEDS: LORazepam 2 MG/ML INJ IVP PRN ×6 (00:55→22:17)
[2018-11-28 03:52] LABS: PLATELET COUNT 9 10^3/uL (150-400)
[2018-11-28] MEDS: NS 1,000 ML IV SCH ×3 (05:00→23:40)
[2018-11-28] MEDS ORDERED: POTASSIUM CL 10 MEQ TAB PO ONE (08:31)
[2018-11-28] MEDS ORDERED: MAGNESIUM SULF 1 GM/DEXTROSE 100 ML IV ONE (08:32)
[2018-11-28] MEDS ORDERED: THIAMINE HCL 500 MG in NS 100 ML IV SCH (09:00)
[2018-11-28] MEDS: THIAMINE HCL 500 MG in NS 100 ML IV SCH (09:39)
[2018-11-28] MEDS: MULTIVITAMINS 1 EACH TAB PO SCH (09:46)
[2018-11-28] MEDS: FOLIC ACID 1 MG TAB PO SCH (09:46)
[2018-11-28 10:00] LABS: PLATELET COUNT 9 10^3/uL (150-400)
--- NOTE | 2018-11-28 11:34 | PDMN ---
Medical Necessity Medical necessity: Pt meets IP criteria per & [facility] M-595 Substance Related Disorders; est los >2 mn for eval/tx of alcohol use disorder w/high risk of severe withdrawal & critical thrombocytopenia (platelets of 12); admit for further monitoring, CIWA protocol, platelet transfusion & Hematology consult; hx recent hospitalization for similar issues-pt left AMA, alcoholic cirrhosis w/ complications; per H&P & order 11/27/18
--- NOTE | 2018-11-28 15:02 | GCON ---
[f rep st] CONSULTATION HEMATOLOGY CONSULTATION DATE OF CONSULTATION: 11/28/2018 REASON FOR CONSULTATION: Pancytopenia. HISTORY OF PRESENT ILLNESS: The patient is a 43-year-old gentleman with a history of heavy alcohol u se. The patient has had a few recent hospital admissions. He was noted to be pancytopenic. Outpati ent followup had been recommended, which has not yet happened. He presented to the hospital last marylou jb, feeling ill and wanting to stop drinking. He had persistent pancytopenia on admission. His pl atelet count is 9000. He denies epistaxis or mucosal bleeding. He denies easy bruisability or petec hiae. When seen this afternoon, he denies pain. PAST MEDICAL HISTORY: 1. Notable for alcohol abuse with alcoholic cirrhosis and known esophageal varices. 2. Chronic splenomegaly secondary to #1. 3. Hypertension. PAST SURGICAL HISTORY: Banding of esophageal varices. FAMILY MEDICAL HISTORY: Noncontributory. SOCIAL HISTORY: The patient lives locally in [place]. He was . He is a nonsmoker. He admi ts to heavy alcohol use, stating he currently drinks 1-2 pints of vodka a day. He was previously dri nking approximately 1.75 L of vodka per day. REVIEW OF SYSTEMS: As outlined above. Remainder 10-point review of systems otherwise negative. PHYSICAL EXAM: GENERAL: Young gentleman in no acute distress. HEENT: Pupils equal. Sclerae nonic teric. Conjunctivae normal. There is no evidence of recent epistaxis. No oral mucosal bleeding. H EART: Regular without murmur. LUNGS: Clear bilaterally. No flank tenderness bilaterally. ABDOMEN : Soft, nontender, nondistended. Spleen is nonpalpable. Mild hepatomegaly present with a smooth li nely edge approximately 3 fingerbreadths below the costal margin. Bowel sounds normoactive. EXTREMIT IES: No extremity swelling or edema. No visible ecchymosis or petechiae. NEURO: The patient is al ert, oriented, and appropriate. LABORATORY STUDIES: From today, white count 0.97, hemoglobin of 10.0, hematocrit 29.6, MCV 86.3, marshall telet count is 9000. Absolute neutrophil count from yesterday is 920. The patient was previously te sted for HIV on November 04, 2018, which was negative. Testing was also done for hepatitis B, hepatitis C, and hepatitis A at that time, which was negative. IMPRESSION: Pancytopenia, likely secondary to chronic alcoholic cirrhosis. The patient is a 43-year-old gentleman with chronic alcohol abuse and history of alcoholic cirrhosis. The patient has developed worsening pancytopenia, specifically worsening thrombocytopenia. He has a platelet count of 9000. He has had no bleeding sequelae from his chronic thrombocytopenia. Given that he is not actively bleeding, I do not believe he requires a prophylactic platelet transfus ion at this time. I have recommended a diagnostic bone marrow biopsy and aspirate for the patient. He is agreeable to having it done while in the hospital. This is ordered to be done via Interventional Radiology hopefu lly tomorrow morning. I will add a TSH to his labs. We will continue to follow him during this hospital stay and will plan on outpatient followup once he is discharged. The plan was discussed with the patient. His questions were answered. Total time for today's visit was approximately 40 minutes of which greater than 50% was spent in coun seling and care coordination. /[id number]/MODL
--- NOTE | 2018-11-28 15:57 | ASMTCMCOM ---
CM Note CM Note Notes: Pts case discussed in tx rounds. Pt is a 43 y/o man admitted for etoh intoxication. Pt has a hx of etoh abuse and multiple hospitalizations to this hospital. Pt reported to Dr. De La O that he wants to stop drinking. CM provided pt w/ etoh resources and education material. Pt was asleep when CM attempted to meet w/ him. Referral made to [facility]. CM available for changes. Plan: Independent Date Signed: 11/28/2018 03:56 PM Electronically Signed By:FERCHO Masterson
--- NOTE | 2018-11-28 16:28 | HOSPPROG ---
Hospitalist Progress Note Assessment/Plan: 43 yo M with PMH of alcoholic cirrhosis with complications that include varices with bleed, PVT, chronic thrombocytopenia presenting with critical thrombocytopenia and alcohol intoxication with hopes to quit drinking # critical thrombocytopenia: platelets of 12, recent hospitalization with same issues that responded to plt transfusion somewhat, patient was to f/u with hematology but did not do so it appears. -S/p Platelet transfusion overnight with no improvement in platelets, 9 this AM -Hematology consulted who recommend bone marrow biopsy, scheduled for tomorrow, also recommended no further platelet transfusion at this time -Repeat CBC in the AM -Platelet transfusion if s/s of bleeding present # alcohol use disorder, severe, with current intoxication, high risk for severe withdrawal: started on CIWA protocol, with last two admissions he had seizure prior to presentation, BAL > 400 on arrival but no e/o withdrawal yet and patient states he has cut down on drinking. Would strongly recommend he transition to IP rehab after dc. 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 No e/o significant ascites, or HE. If quits drinking should establish care with GI. # alcoholic hepatitis: with DF of 15, underlying cirrhosis # pancytopenia: with low wbc and mild anemia, severe thrombocytopenia as above, presumably due to etoh abuse/chronic liver disease # IP status Subjective: Pt reports no complaints this AM Objective: Vital Signs Temp Pulse Resp BP Pulse Ox 36.7 C 80 19 152/85 H 95 11/28/18 14:49 11/28/18 14:49 11/28/18 14:49 11/28/18 14:49 11/28/18 14:49 Laboratory Results 11/28/18 09:41 11/28/18 03:25 11/27/18 11/28/18 11/29/18 05:59 05:59 05:59 Intake Total 2049 169 Balance 2049 169 PT 16.4 SEC (12.0-15.0) H 11/27/18 16:22 INR 1.38 (0.83-1.16) H 11/27/18 16:22 - Physical Exam Constitutional: chronically ill appearing Eyes: PERRL Ears, Nose, Mouth, Throat: moist mucous membranes Cardiovascular: regular rate and rhythym Respiratory: no respiratory distress Gastrointestinal: soft, non-tender abdomen Skin: warm Musculoskeletal: full muscle strength Neurologic: AAOx3 Psychiatric: interacting appropriately ICD10 Worksheet Patient Problems: Problems Problem Status Onset Alcohol intoxication Acute Thrombocytopenia Acute Alcohol dependence Acute Alcohol withdrawal Acute Alcohol withdrawal seizure Acute Anemia Acute Encephalopathy acute Acute Hypokalemia Acute Hypokalemia Acute Hypomagnesemia Acute Laceration of head Acute Prolonged QT interval Acute Upper GI bleed Acute
[2018-11-28] MEDS: ONDANSETRON 4 MG/2 ML VIAL IVP PRN ×2 (16:37→22:08)
[2018-11-28] MEDS ORDERED: POTASSIUM CL 20 MEQ TAB PO ONE (22:32)
[2018-11-29] MEDS: LORazepam 2 MG/ML INJ IVP PRN ×4 (02:30→20:01)
[2018-11-29 04:44] LABS: PLATELET COUNT 9 10^3/uL (150-400)
[2018-11-29] MEDS: ONDANSETRON 4 MG/2 ML VIAL IVP PRN (05:05)
[2018-11-29] MEDS: NS 1,000 ML IV SCH (05:05)
[2018-11-29] MEDS ORDERED: POTASSIUM CL 10 MEQ TAB PO ONE (07:48)
[2018-11-29] MEDS ORDERED: MAGNESIUM SULF 2 GM/WATER 50 ML IV ONE (07:49)
[2018-11-29] MEDS ORDERED: CALCIUM GLUCONATE 50 ML IV ONE (07:51)
[2018-11-29] MEDS: MULTIVITAMINS 1 EACH TAB PO SCH (08:33)
[2018-11-29] MEDS: FOLIC ACID 1 MG TAB PO SCH (08:33)
[2018-11-29] MEDS: THIAMINE HCL 500 MG in NS 100 ML IV SCH (08:34)
[2018-11-29] MEDS ORDERED: PROTAMINE SULFATE 50 MG/5 ML VIAL IVP PRN (10:18)
[2018-11-29] MEDS ORDERED: MIDAZOLAM 2 MG/2 ML VIAL IVP PRN (10:18)
[2018-11-29] MEDS ORDERED: HEPARIN 10,000 UNIT/10 ML MDV (1,000 UNIT/ML) IVP PRN (10:18)
[2018-11-29] MEDS ORDERED: FLUMAZENIL 0.5 MG/5 ML MDV IVP PRN (10:18)
[2018-11-29] MEDS ORDERED: GLUCAGON HCL 1 MG VIAL IVP PRN (10:18)
[2018-11-29] MEDS ORDERED: NALOXONE HCL 0.4 MG/ML INJ IVP PRN (10:18)
[2018-11-29] MEDS ORDERED: ALTEPLASE 2 MG VIAL IVP PRN (10:18)
[2018-11-29] MEDS ORDERED: fentaNYL 100 MCG/2 ML INJ IVP PRN (10:18)
[2018-11-29] MEDS ORDERED: MEPERIDINE 25 MG/ML SYR IVP PRN (10:18)
[2018-11-29] MEDS ORDERED: NS 1,000 ML IV SCH (10:30)
[2018-11-29] MEDS ORDERED: BUPIVACAINE 0.5% 30 ML SDV ONE (10:30)
--- NOTE | 2018-11-29 10:40 | PDPROPOC ---
Sedation Plan of Care Sedation Plan of Care: vital signs stable, mental status noted, patient educated of risks, benefits, alternatives, patient can tolerate sedation ASA Classification: ASA 3 Planned drugs: fentanyl, midazolam Mallampati Score: Class 3 Mallampati Reference Image: Patient passed 3-3-2 rule?: Yes
--- NOTE | 2018-11-29 11:12 | PDRADPN ---
Radiology Procedure Note Date of Procedure: 11/29/18 Radiologist: Do Bal Anesthesia: IV Sedation Pre-op Diagnosis: LOW PLTS Post-op Diagnosis: SAME Indication: BM EVALUATION Procedure: BM BIOPSY Inf/Abcess present in the surg proc area at time of surgery?: No
--- NOTE | 2018-11-29 14:30 | HOSPPROG ---
Hospitalist Progress Note Assessment/Plan: 43 yo M with PMH of alcoholic cirrhosis with complications that include varices with bleed, PVT, chronic thrombocytopenia presenting with critical thrombocytopenia and alcohol intoxication with hopes to quit drinking # critical thrombocytopenia: platelets of 12 on admission, recent hospitalization with same issues that responded to plt transfusion somewhat, patient was to f/u with hematology but did not do so it appears. -S/p Platelet transfusion on night of admission with no improvement in platelets , remains 9 this AM -Hematology consulted who recommend bone marrow biopsy, scheduled for tomorrow, also recommended no further platelet transfusion at this time -Platelet transfusion if s/s of bleeding present # alcohol use disorder, severe, with current intoxication, high risk for severe withdrawal: started on CIWA protocol, with last two admissions he had seizure prior to presentation, BAL > 400 on arrival but no e/o withdrawal yet and patient states he has cut down on drinking. Would strongly recommend he transition to IP rehab after dc but he is refusing. CM consulted who gave patient resources. Discussed with Medical POA this afternoon who reports patient has undergone rehab 8 times with no success. 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 No e/o significant ascites, or HE. If quits drinking should establish care with GI. # alcoholic hepatitis: with DF of 15, underlying cirrhosis # pancytopenia: with low wbc and mild anemia, severe thrombocytopenia as above, presumably due to etoh abuse/chronic liver disease # IP status Subjective: Pt reports no complaints this AM Objective: Vital Signs Temp Pulse Resp BP Pulse Ox 36.0 C 84 15 179/115 H 97 11/29/18 13:41 11/29/18 13:41 11/29/18 13:41 11/29/18 13:41 11/29/18 13:41 Laboratory Results 11/29/18 03:16 11/29/18 03:16 11/28/18 11/29/18 11/30/18 05:59 05:59 05:59 Intake Total 2049 6733 100 Output Total 1899 1900 Balance 2049 4833 -1800 PT 16.4 SEC (12.0-15.0) H 11/27/18 16:22 INR 1.38 (0.83-1.16) H 11/27/18 16:22 - Physical Exam Constitutional: chronically ill appearing Eyes: PERRL Ears, Nose, Mouth, Throat: moist mucous membranes Cardiovascular: regular rate and rhythym Respiratory: no respiratory distress Gastrointestinal: soft, non-tender abdomen Skin: warm Musculoskeletal: full muscle strength Neurologic: AAOx3 Psychiatric: interacting appropriately ICD10 Worksheet Patient Problems: Problems Problem Status Onset Alcohol intoxication Acute Thrombocytopenia Acute Alcohol dependence Acute Alcohol withdrawal Acute Alcohol withdrawal seizure Acute Anemia Acute Encephalopathy acute Acute Hypokalemia Acute Hypokalemia Acute Hypomagnesemia Acute Laceration of head Acute Prolonged QT interval Acute Upper GI bleed Acute
--- NOTE | 2018-11-29 16:33 | SOAPPROG ---
[facility] Progress Note Assessment/Plan: Assessment: 1) Pancytopenia 2) Alcoholic cirrhosis Plan: Patient had bone marrow biopsy / aspirate done this morning without difficulty. Results pending. No bleeding at biopsy site. He was given a platelet transfusion the morning of hospital admission, and did not respond. He is not bleeding, and is not likely to have a good response to additional transfusion. I would reserve further platelet transfusion for clinically significant bleeding. Will plan on outpatient follow up next week with one of my partners in [place] to review the results of the bone marrow biopsy. The importance of keeping a follow up appointment with us was reinforced with the patient today. I suspect that his pancytopenia is related to cirrhosis and resulting hypersplenism. 11/29/18 16:28 11/29/18 16:29 Subjective: Had bone marrow biopsy and aspirate this morning. No evidence of bleeding. Objective: Vital Signs Temp Pulse Resp BP Pulse Ox 36.6 C 82 19 149/93 H 93 11/29/18 15:48 11/29/18 15:48 11/29/18 15:48 11/29/18 15:48 11/29/18 15:48 Laboratory Results 11/29/18 03:16 11/29/18 03:16 11/28/18 11/29/18 11/30/18 05:59 05:59 05:59 Intake Total 2049 6733 1260 Output Total 1900 1900 Balance 2049 4833 -640 PT 16.4 SEC (12.0-15.0) H 11/27/18 16:22 INR 1.38 (0.83-1.16) H 11/27/18 16:22 - Time Spent With Patient Time Spent With Patient: 16 minutes Physical Exam - Physical Exam General Appearance: other (Asleep, Easily awakens) EENT: PERRL/EOMI Skin: other (No petichiae or ecchymosis) Neuro/Psych: oriented x 3 ICD10 Worksheet Patient Problems: Problems Problem Status Onset Alcohol intoxication Acute Thrombocytopenia Acute Alcohol dependence Acute Alcohol withdrawal Acute Alcohol withdrawal seizure Acute Anemia Acute Encephalopathy acute Acute Hypokalemia Acute Hypokalemia Acute Hypomagnesemia Acute Laceration of head Acute Prolonged QT interval Acute Upper GI bleed Acute
[2018-11-30] MEDS ORDERED: POTASSIUM CL 10 MEQ TAB PO ONE ×2 (00:04→08:01)
[2018-11-30] MEDS: LORazepam 2 MG/ML INJ IVP PRN (00:18)
[2018-11-30 04:29] LABS: PLATELET COUNT 10 10^3/uL (150-400)
[2018-11-30 07:54] VITALS: BP 141/101
[2018-11-30] MEDS ORDERED: MAGNESIUM SULF 1 GM/DEXTROSE 100 ML IV ONE (08:03)
[2018-11-30] MEDS: FOLIC ACID 1 MG TAB PO SCH (08:29)
[2018-11-30] MEDS: MULTIVITAMINS 1 EACH TAB PO SCH (08:29)
[2018-11-30] MEDS ORDERED: THIAMINE HCL 100 MG TAB PO SCH ×2 (09:00→17:50)
--- NOTE | 2018-11-30 10:04 | ASMTLACE ---
[facility] Length of stay for Answers: 3 days current admission Acuity / Level of Answers: Yes Care: Did the patient have an inpatient admission? Comorbidities - select Answers: Other Notes: PVT all that apply # of Emergency department Answers: 5-8 visits in the last 6 months Social determinants Answers: History of substance abuse (ETOH, street drugs, prescription drugs, etc.) Score: 14 Date Signed: 11/30/2018 10:02 AM Electronically Signed By:Kristen Vilchis
--- NOTE | 2018-11-30 10:10 | ASMTDCNOTE ---
Case Management Discharge Discharge Order Complete? Answers: Yes Patient to Obtain Answers: Independently Medications Discharge Comments Notes: CM reviewed patients chart. Patient is being medically discharged independently. [facility] referral completed. Left voice message with multi care technician at Dr. Larose's office requesting followup. No further CM needs identified. Date Signed: 11/30/2018 10:09 AM Electronically Signed By:Kristen Vilchis
--- NOTE | 2018-11-30 10:11 | ASDISCHSUM ---
Discharge Information Plan Status:Home with No Needs Medically Cleared to Leave:11/30/2018 Discharge Date:11/30/2018 CM D/C Disposition:Home, Routine, Self-Care ADT D/C Disposition: Projected Discharge Date:11/30/2018 Transportation at D/C: Discharge Delay Reason: Follow-Up Date:11/30/2018 Discharge Slot: Final Diagnosis: Placement Information Patient Contact Information Contact Name:TURNER Relationship:Sister Address:[address] [place] [address] City:[place] Alternate Phone: State/Zip Code:[place] [address] Email: Financial Information Financial Class:Medicaid Primary Plan Desc[place] Primary Plan Number:[id number] Secondary Plan Desc: Secondary Plan Number: Assessment Information [facility] Progress Note CM Note CM Note Notes: Pts case discussed in tx rounds. Pt is a 43 y/o man admitted for etoh intoxication. Pt has a hx of etoh abuse and multiple hospitalizations to this hospital. Pt reported to Dr. De La O that he wants to stop drinking. CM provided pt w/ etoh resources and education material. Pt was asleep when CM attempted to meet w/ him. Referral made to [facility]. CM available for changes. Plan: Independent Date Signed: 11/28/2018 03:56 PM Electronically Signed By:FERHCO Masterson LACE LACE Length of stay for Answers: 3 days current admission Acuity / Level of Answers: Yes Care: Did the patient have an inpatient admission? Comorbidities - select Answers: Other Notes: PVT all that apply # of Emergency department Answers: 5-8 visits in the last 6 months Social determinants Answers: History of substance abuse (ETOH, street drugs, prescription drugs, etc.) Score: 14 Date Signed: 11/30/2018 10:02 AM Electronically Signed By:Kristen Vilchis Case Management Discharge Plan Note Case Management Discharge Discharge Order Complete? Answers: Yes Patient to Obtain Answers: Independently Medications Discharge Comments Notes: CM reviewed patients chart. Patient is being medically discharged independently. [facility] referral completed. Left voice message with nurse care manager at Dr. Larose's office requesting followup. No further CM needs identified. Date Signed: 11/30/2018 10:09 AM Electronically Signed By:Kristen Vilchis Intervention Information Intervention Type:*Incorrect Registration Date of Service:11/27/2018 07:13 AM Patient Type:Observation Staff Member:RIANNA Chavez Courtney Hours: Discipline: Severity: Comment:
--- NOTE | 2018-11-30 10:36 | SOAPPROG ---
[facility] Progress Note Assessment/Plan: Assessment: 1) Pancytopenia 2) Alcoholic cirrhosis Plan: Patient had bone marrow biopsy / aspirate done this week without difficulty. Results are still pending. He was given a platelet transfusion the morning of hospital admission, and did not respond. He is not bleeding, and is not likely to have a good response to additional transfusion. I would reserve further platelet transfusion for clinically significant bleeding. Will plan on outpatient follow up next week with Dr. Brewster in [place] to review the results of the bone marrow biopsy. The importance of keeping a follow up appointment with us was reinforced with the patient today. This morning I gave him a written copy of the appointment location and date/ time. (12/04/[address] Brewster at our [place] office.). He understands the importance of keeping this appointment. I suspect that his pancytopenia is related to cirrhosis and resulting hypersplenism. I indicated to him that he needs to return to the hospital if he develops any bleeding. Subjective: No episodes of bleeding. Patient being discharged home today. Objective: Vital Signs Temp Pulse Resp BP Pulse Ox 36.8 C 77 18 141/101 H 93 11/30/18 07:53 11/30/18 07:53 11/30/18 07:53 11/30/18 07:53 11/30/18 07:53 Laboratory Results 11/30/18 03:28 11/30/18 03:28 11/29/18 11/30/18 12/01/18 05:59 05:59 05:59 Intake Total 6733 1980 Output Total 1900 4800 Balance 4833 -2820 PT 16.4 SEC (12.0-15.0) H 11/27/18 16:22 INR 1.38 (0.83-1.16) H 11/27/18 16:22 - Time Spent With Patient Time Spent With Patient: 10 minutes Physical Exam - Physical Exam EENT: other (No epistaxis or mucosal bleeding) Neuro/Psych: alert, normal mood/affect ICD10 Worksheet Patient Problems: Problems Problem Status Onset Alcohol intoxication Acute Thrombocytopenia Acute Alcohol dependence Acute Alcohol withdrawal Acute Alcohol withdrawal seizure Acute Anemia Acute Encephalopathy acute Acute Hypokalemia Acute Hypokalemia Acute Hypomagnesemia Acute Laceration of head Acute Prolonged QT interval Acute Upper GI bleed Acute
--- NOTE | 2018-11-30 11:00 | ASMTCAGE ---
CAGE Do you feel you ought to Answers: Yes cut down on your drinking or drug use? Do people annoy you by Answers: Yes criticizing your drinking or drug use? Do you feel guilty about Answers: Yes your drinking or drug use? Do you drink or use drugs Answers: Yes first thing in the morning ([employer])? Additional Comments resources provided. Patient reports anywhere from 4-8 drinks per day. Date Signed: 11/30/2018 10:59 AM Electronically Signed By:Kristen Vilchis
--- NOTE | 2018-11-30 16:50 | PDDCSUM ---
Discharge Summary Discharge Summary: Date of Admission: 11/27/2018 Date of Discharge: 11/30/2018 Consults: Hematology Procedures: Bone Marrow biopsy Followup: PCP, Hematology 43 yo M with PMH of alcoholic cirrhosis with complications that include varices with bleed, PVT, chronic thrombocytopenia presenting with critical thrombocytopenia and alcohol intoxication with hopes to quit drinking # critical thrombocytopenia: platelets of 12 on admission, recent hospitalization with same issues that responded to plt transfusion somewhat, patient was to f/u with hematology but did not do so it appears. -S/p Platelet transfusion on night of admission with no improvement in platelets , remains 10 this AM -Hematology consulted who recommend bone marrow biopsy, performed on 11/29, also recommended no further platelet transfusion at this time -Platelet transfusion if s/s of bleeding present # alcohol use disorder, severe, with current intoxication, high risk for severe withdrawal: started on CIWA protocol, with last two admissions he had seizure prior to presentation, BAL > 400 on arrival but no e/o withdrawal yet and patient states he has cut down on drinking. Would strongly recommend he transition to IP rehab after dc but he is refusing. CM consulted who gave patient resources. Discussed with Medical POA who reports patient has undergone rehab 8 times with no success. 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 No e/o significant ascites, or HE. If quits drinking should establish care with GI. # alcoholic hepatitis: with DF of 15, underlying cirrhosis # pancytopenia: with low wbc and mild anemia, severe thrombocytopenia as above, presumably due to etoh abuse/chronic liver disease Time spent on discharge was >35 minutes with >50% of time spent on patient education and counseling.
== END 2018-11-30 10:58 | disposition home or self-care (01) | DRG 660 ==
LOC: EDUNIT# → OBSVTOIN 17:46 → F2W 18:38
PROVIDERS: ADMIT Internal Medicine; ATTEND Internal Medicine
PROC: 30233R1 Transfusion of Nonautologous Platelets into Peripheral Vein, Percutaneous Approach (ICD-10-PCS; 2018-11-27)
PROC: 07DR3ZX Extraction of Iliac Bone Marrow, Percutaneous Approach, Diagnostic (ICD-10-PCS; principal; 2018-11-29 11:18)
DX: D61.818 Other pancytopenia (principal); I47.2 Ventricular tachycardia; D69.59 Other secondary thrombocytopenia; I27.20 Pulmonary hypertension, unspecified; E86.9 Volume depletion, unspecified; F10.288 Alcohol dependence with other alcohol-induced disorder; F10.239 Alcohol dependence with withdrawal, unspecified; K70.10 Alcoholic hepatitis without ascites; K70.30 Alcoholic cirrhosis of liver without ascites; I83.90 Asymptomatic varicose veins of unspecified lower extremity; Y90.8 Blood alcohol level of 240 mg/100 ml or more
CPT/HCPCS: 96365; 97116-GP; 97161-GP; 97166-GO; G0480; J0610; J2060; J2250; J2310; J2405; J3010; J3411; J3475; J3480; P9035